=== PATIENT | female | born 1955 | race African-American/Black ===

== ENCOUNTER 2017-02-06 22:54 | Inpatient (IN) | payer OTHER ==
[~2017-02-06] VITALS: Ht 154.9 cm; Wt 77.7 kg
[~2017-02-06 22:54] MED LIST: ALBU6.7H IH; AMLO10TA80 PO; DEXL60CA3 PO; FERR-43 PO; FOLI-43 PO; FURO-151 PO; LACT10SO PO; LOSA100T14 PO; MOME13HF2 IH; MULT-1146 PO; P20 PO; PROT40 PO; SPIR50TA26 PO; TIOT18CA3 INH; [UNRECOGNIZED DRUG - OTHER]; propranolol; thiamine
[2017-02-06] MEDS ORDERED: ALBUTEROL (0.083%) 2.5MG/3ML NEB HHN STA (23:33)
[2017-02-06] MEDS ORDERED: METHYLPREDNISOLONE SOD SUCC 125 MG/2 ML VIAL IV STA (23:33)
[2017-02-06] MEDS ORDERED: IPRATROPIUM BROMIDE (0.02%) 0.5MG/2.5ML NEB HHN STA (23:33)
[2017-02-06] MEDS ORDERED: FUROSEMIDE 40MG/4ML VIAL IVP ONE (23:45)
[2017-02-06 23:58] LABS: DIFFERENTIAL COMMENT 1; HEMATOCRIT. 24.6 % (36.0-48.0); HEMOGLOBIN. 7.5 g/dL (12.0-16.0); MEAN CORPUSCULAR HEMOGLOBIN 24.3 pg (28.0-32.0); MEAN CORPUSCULAR HGB CONC 30.4 g/dL (31.0-37.0); MEAN CORPUSCULAR VOLUME 80.2 fL (81.0-99.0); MEAN PLATELET VOLUME 6.8 fl (7.4-10.4); PLATELET 554 x1000/uL (130-400); RED BLOOD CELL COUNT 3.07 mill/uL (4.2-5.4); RED CELL DISTRIBUTION WIDTH 23.3 % (11.6-14.6); WHITE BLOOD COUNT 15.5 x1000/uL (4.5-11.0)
[2017-02-07] VITALS: BP 96/51
[2017-02-07 00:03] LABS: CHLORIDE 97 mEq/L (98-107); INDEX HEMOLYSI 1 (1-3); INDEX ICTERIC 1 (1-4); INDEX LIPEMIC 1 (1-3)
[2017-02-07 00:06] LABS: INR 1.2; PARTIAL THROMBOPLASTIN TIME 28.2 sec (24.0-34.0); PROTHROMBIN TIME 12.8 sec
[2017-02-07 00:12] LABS: ALANINE AMINOTRANSFERASE 25 IU/L (13-61); ALBUMIN 2.4 g/dL (3.4-5.0); ANION GAP 15; CALCIUM 8.2 mg/dL (8.5-10.1); CARBON DIOXIDE 26 mEq/L (21-32); UREA NITROGEN BLOOD 54 mg/dL (7-21); eGFR 24 mL/min (>60)
[2017-02-07] MEDS ORDERED: MORPHINE SULFATE 4 MG/ML CPJ (NOT FOR IM USE) IV ONE (00:30)
[2017-02-07] MEDS ORDERED: ONDANSETRON HCL 4MG/2ML VIAL IV ONE (00:30)
[2017-02-07] MEDS ORDERED: ALBUTEROL (0.5%) 2.5MG/0.5ML NEB HHN ONE (01:33)
[2017-02-07 04:32] LABS: ATYPICAL LYMPHOCYTES 1; PLATELET ESTIMATE INCREASED
[2017-02-07 04:33] LABS: HYPOCHROMASIA 1+
[2017-02-07] MEDS ORDERED: HYDROMORPHONE HCL 2MG TABLET PO PRN (09:30)
[2017-02-07] MEDS ORDERED: CLONIDINE 0.2MG TABLET PO PRN (09:30)
[2017-02-07] MEDS ORDERED: ALBUTEROL 6.7GM HFA INHALER INH PRN (09:30)
[2017-02-07] MEDS ORDERED: IPRATROPIUM BROMIDE (0.02%) 0.5MG/2.5ML NEB HHN PRN (09:30)
[2017-02-07] MEDS ORDERED: ZOLPIDEM TARTRATE 5MG TABLET PO PRN (09:30)
[2017-02-07] MEDS ORDERED: SPIRONOLACTONE 50MG TABLET PO SCH (09:40)
[2017-02-07] MEDS ORDERED: FUROSEMIDE 40MG TABLET PO SCH ×2 (09:40)
[2017-02-07] MEDS ORDERED: PREDNISONE 20MG TABLET PO SCH (10:00)
[2017-02-07] MEDS ORDERED: ALBUTEROL (0.083%) 2.5MG/3ML NEB HHN PRN (10:00)
[2017-02-07] MEDS ORDERED: PANTOPRAZOLE 40MG DR TABLET PO SCH (10:00)
[2017-02-07] MEDS: FOLIC ACID 1MG TABLET PO SCH (10:16)
[2017-02-07] MEDS: FERROUS SULFATE 325MG TABLET PO SCH (10:17)
[2017-02-07] MEDS: HYDROCODONE/ACETAMINOPHEN 5/325MG TABLET PO PRN ×2 (10:23→21:35)
[2017-02-07] MEDS: AMLODIPINE 10MG TABLET PO SCH (10:24)
[2017-02-07] MEDS: ENOXAPARIN 30MG/0.3ML SYR SUBCUT SCH (10:25)
[2017-02-07] MEDS: LOSARTAN POTASSIUM 100 MG TABLET PO SCH (10:25)
[2017-02-07] MEDS ORDERED: LACTULOSE 20G/30ML UDC PO PRN (10:45)
[2017-02-07 12:00] VITALS: BP 82/50
[2017-02-07] MEDS: LACTULOSE 20G/30ML UDC PO SCH (12:10)
[2017-02-07 12:50] LABS: AMMONIA 38 uMol/L (<32)
[2017-02-07 13:14] VITALS: BP 105/61
[2017-02-07 13:41] LABS: BG BASE EXCESS -1.1 mmol/L (-2.0-2.0); BG CARBOXYHEMOGLOBIN 0.6 % (0.5-1.5); BG DEOXYHEMOGLOBIN 5.6 % (0.0-5.0); BG FRACTION INSPIRED OXYGEN 32; BG HCO3 ACT 23.3 mmol/L (22.0-26.0); BG METHEMOGLOBIN 0.7 % (0.0-1.5); BG OXYGEN SATURATION 94.3 % (92.0-98.5); BG OXYHEMOGLOBIN 93.1 % (94.0-97.0); BG PCO2 37.2 mmHg (35.0-45.0); BG PH 7.415 (7.350-7.450); BG SAMPLE SITE RIGHT BRACHIAL; BG VENT MODE NASAL CANNULA
[2017-02-07] MEDS: CEFEPIME 1,000 MG in DEXTROSE 5% WATER 50 ML IV SCH (13:43)
[2017-02-07] MEDS: IPRATROPIUM/ALBUTEROL 0.5-3(2.5)MG/3ML NEB HHN SCH ×2 (14:22→20:51)
[2017-02-07] MEDS: BUDESONIDE 0.5MG/2ML NEB HHN SCH ×2 (14:28→20:51)
[2017-02-07 16:00] VITALS: BP 75/49
[2017-02-07] MEDS: PREDNISONE 20MG TABLET PO SCH (16:40)
[2017-02-07 20:00] VITALS: BP 102/63
[2017-02-07 23:49] LABS: CLARITY URINE CLEAR (CLEAR); COLOR URINE YELLOW (YELLOW); GLUCOSE URINE NEGATIVE (NEGATIVE); KETONES URINE NEGATIVE (NEGATIVE); LEUKOCYTE ESTERASE URINE NEGATIVE (NEGATIVE); NITRITE URINE NEGATIVE (NEGATIVE); OCCULT BLOOD URINE NEGATIVE (NEGATIVE); PROTEIN URINE NEGATIVE (NEGATIVE); SPECIFIC GRAVITY URINE 1.017 (1.005-1.030); UROBILINOGEN URINE 0.2 E.U./dL (0.2-1.0)
[2017-02-08] VITALS (12 sets, daily range): BP systolic 87–123; BP diastolic 50–78
[2017-02-08] MEDS: CEFEPIME 1,000 MG in DEXTROSE 5% WATER 50 ML IV SCH ×2 (00:45→14:23)
[2017-02-08 00:48] LABS: *AMPHETAMINES SCREEN URINE NEGATIVE (NEGATIVE); *BARBITURATES SCREEN URINE NEGATIVE (NEGATIVE); *BENZODIAZEPINES SCREEN URINE NEGATIVE (NEGATIVE); *COCAINE SCREEN URINE NEGATIVE (NEGATIVE); CANNABINOID URINE SCREEN NEGATIVE (NEGATIVE); ECSTASY MDMA SCREEN URINE NEGATIVE (NEGATIVE); METHADONE URINE SCREEN NEGATIVE (NEGATIVE); OPIATES URINE SCREEN PRESUMTIVE POSITIVE (NEGATIVE); PHENCYCLIDINE URINE SCREEN NEGATIVE (NEGATIVE)
[2017-02-08] MEDS: IPRATROPIUM/ALBUTEROL 0.5-3(2.5)MG/3ML NEB HHN SCH ×4 (01:34→20:47)
[2017-02-08] MEDS: ACETAMINOPHEN 325MG TABLET PO PRN (05:44)
[2017-02-08 06:29] LABS: MEAN CORPUSCULAR HEMOGLOBIN 25.1 pg (28.0-32.0); MEAN CORPUSCULAR HGB CONC 31.4 g/dL (31.0-37.0); MEAN PLATELET VOLUME 6.9 fl (7.4-10.4); PLATELET 443 x1000/uL (130-400); RED BLOOD CELL COUNT 2.63 mill/uL (4.2-5.4); RED CELL DISTRIBUTION WIDTH 23.4 % (11.6-14.6); WHITE BLOOD COUNT 15.5 x1000/uL (4.5-11.0)
[2017-02-08 07:33] LABS: CALCIUM 7.9 mg/dL (8.5-10.1)
[2017-02-08 07:37] LABS: DIFFERENTIAL COMMENT 1
[2017-02-08 07:58] LABS: HEMOGLOBIN. 6.6 g/dL (12.0-16.0)
[2017-02-08] MEDS: BUDESONIDE 0.5MG/2ML NEB HHN SCH ×2 (08:28→20:47)
[2017-02-08] MEDS: FUROSEMIDE 20MG/2ML VIAL IVP SCH (09:00)
[2017-02-08] MEDS: LOSARTAN POTASSIUM 100 MG TABLET PO SCH (09:00)
[2017-02-08] MEDS: AMLODIPINE 10MG TABLET PO SCH (09:00)
[2017-02-08] MEDS: FOLIC ACID 1MG TABLET PO SCH (09:04)
[2017-02-08] MEDS: LACTULOSE 20G/30ML UDC PO SCH (09:04)
[2017-02-08] MEDS: PREDNISONE 20MG TABLET PO SCH ×2 (09:04→17:44)
[2017-02-08] MEDS: FERROUS SULFATE 325MG TABLET PO SCH (09:05)
[2017-02-08] MEDS: ENOXAPARIN 30MG/0.3ML SYR SUBCUT SCH (10:00)
[2017-02-08] MEDS: PANTOPRAZOLE SODIUM 40 MG/VIAL IV SCH ×2 (11:04→17:44)
[2017-02-08 11:24] LABS: ANISOCYTOSIS 3+; PLATELET ESTIMATE INCREASED
[2017-02-08 12:24] LABS: HEMATOCRIT 26.3 % (36.0-48.0); HEMOGLOBIN 7.7 g/dL (12.0-16.0)
[2017-02-08 14:19] LABS: INDEX HEMOLYSI 1 (1-3); INDEX ICTERIC 1 (1-4); INDEX LIPEMIC 1 (1-3); IRON 11 ug/dL (50-175); TOTAL IRON BINDING CAPACITY 301 ug/dL (250-450)
[2017-02-08 17:47] LABS: CREATINE KINASE MB FRACTION 1.5 ng/mL (0.5-3.6); TROPONIN I 0.02 ng/mL (0.00-0.04)
[2017-02-08 17:57] LABS: T4 FREE 0.98 ng/dL (0.76-1.46)
[2017-02-08 18:02] LABS: THYROID STIMULATING HORMONE 0.4 uIU/mL (0.36-3.74)
[2017-02-08] MEDS: HYDROCODONE/ACETAMINOPHEN 5/325MG TABLET PO PRN (18:44)
[2017-02-08 20:58] LABS: HEMATOCRIT 28.9 % (36.0-48.0); HEMOGLOBIN 8.9 g/dL (12.0-16.0)
[2017-02-08] MEDS ORDERED: SODIUM POLYSTYRENE SULFONATE 15 G/60 ML BOT PO NR (21:30)
[2017-02-08 23:41] LABS: CREATINE KINASE MB FRACTION 1.5 ng/mL (0.5-3.6); TROPONIN I 0.04 ng/mL (0.00-0.04)
[2017-02-09] VITALS (10 sets, daily range): BP systolic 104–134; BP diastolic 61–104
[2017-02-09] MEDS: CEFEPIME 1,000 MG in DEXTROSE 5% WATER 50 ML IV SCH ×2 (00:21→13:06)
[2017-02-09] MEDS: HYDROCODONE/ACETAMINOPHEN 5/325MG TABLET PO PRN ×2 (00:23→09:29)
[2017-02-09] MEDS: IPRATROPIUM/ALBUTEROL 0.5-3(2.5)MG/3ML NEB HHN SCH ×4 (00:49→20:09)
[2017-02-09 01:45] LABS: HEMATOCRIT 26.9 % (36.0-48.0); HEMOGLOBIN 8.4 g/dL (12.0-16.0)
[2017-02-09] MEDS: MORPHINE SULFATE 2 MG/ML CPJ (NOT FOR IM USE) IV PRN ×3 (04:05→21:30)
[2017-02-09] MEDS: PANTOPRAZOLE SODIUM 40 MG/VIAL IV SCH ×2 (08:12→17:33)
[2017-02-09] MEDS: BUDESONIDE 0.5MG/2ML NEB HHN SCH ×2 (08:14→20:09)
[2017-02-09] MEDS: ENOXAPARIN 30MG/0.3ML SYR SUBCUT SCH (08:39)
[2017-02-09] MEDS: FUROSEMIDE 20MG/2ML VIAL IVP SCH (08:55)
[2017-02-09] MEDS: FERROUS SULFATE 325MG TABLET PO SCH (08:55)
[2017-02-09] MEDS: PREDNISONE 20MG TABLET PO SCH ×2 (08:55→17:34)
[2017-02-09] MEDS: FOLIC ACID 1MG TABLET PO SCH (08:55)
[2017-02-09] MEDS: LOSARTAN POTASSIUM 100 MG TABLET PO SCH (08:56)
[2017-02-09] MEDS: LACTULOSE 20G/30ML UDC PO SCH (09:00)
[2017-02-09] MEDS: AMLODIPINE 10MG TABLET PO SCH (09:00)
[2017-02-09 09:49] LABS: HEMATOCRIT. 32.2 % (36.0-48.0); HEMOGLOBIN. 10.2 g/dL (12.0-16.0); MEAN CORPUSCULAR HEMOGLOBIN 25.7 pg (28.0-32.0); MEAN CORPUSCULAR HGB CONC 31.7 g/dL (31.0-37.0); MEAN CORPUSCULAR VOLUME 81.1 fL (81.0-99.0); MEAN PLATELET VOLUME 6.8 fl (7.4-10.4); PLATELET 500 x1000/uL (130-400); RED BLOOD CELL COUNT 3.97 mill/uL (4.2-5.4); RED CELL DISTRIBUTION WIDTH 21.7 % (11.6-14.6)
[2017-02-09 09:53] LABS: DIFFERENTIAL COMMENT 1
[2017-02-09 10:19] LABS: CALCIUM 8.1 mg/dL (8.5-10.1); TROPONIN I 0.03 ng/mL (0.00-0.04)
[2017-02-09 12:27] LABS: PROTEIN BODY FLUID 3.1 gm/dL
[2017-02-09 13:36] LABS: BODY FLUID MONOCYTES 48 %; BODY FLUID WBC 375 /cu mm (0-200)
[2017-02-09] MEDS ORDERED: VANCOMYCIN 1500MG in DEXTROSE 5% WATER 250ML IV NR (16:00)
[2017-02-09 16:26] LABS: ANISOCYTOSIS 1+; NUCLEATED RED BLOOD CELLS 3 /100 WBC; PLATELET ESTIMATE INCREASED
[2017-02-10] VITALS: BP 142/81
[2017-02-10] MEDS: IPRATROPIUM/ALBUTEROL 0.5-3(2.5)MG/3ML NEB HHN SCH ×4 (02:54→20:26)
[2017-02-10] MEDS: MORPHINE SULFATE 2 MG/ML CPJ (NOT FOR IM USE) IV PRN ×4 (03:09→18:44)
[2017-02-10 04:00] VITALS: BP 122/78
[2017-02-10 05:48] LABS: ANION GAP 15; CALCIUM 8.2 mg/dL (8.5-10.1); CARBON DIOXIDE 27 mEq/L (21-32); CHLORIDE 99 mEq/L (98-107); INDEX HEMOLYSI 1 (1-3); INDEX ICTERIC 1 (1-4); INDEX LIPEMIC 1 (1-3); UREA NITROGEN BLOOD 65 mg/dL (7-21); eGFR > 60 mL/min (>60)
[2017-02-10 05:53] LABS: HEMATOCRIT. 34.2 % (36.0-48.0); HEMOGLOBIN. 10.6 g/dL (12.0-16.0); MEAN CORPUSCULAR HEMOGLOBIN 25.8 pg (28.0-32.0); MEAN CORPUSCULAR HGB CONC 31.1 g/dL (31.0-37.0); MEAN CORPUSCULAR VOLUME 82.8 fL (81.0-99.0); MEAN PLATELET VOLUME 6.7 fl (7.4-10.4); PLATELET 384 x1000/uL (130-400); RED BLOOD CELL COUNT 4.13 mill/uL (4.2-5.4); RED CELL DISTRIBUTION WIDTH 21.5 % (11.6-14.6); WHITE BLOOD COUNT 16.9 x1000/uL (4.5-11.0)
[2017-02-10 07:14] LABS: DIFFERENTIAL COMMENT 1
[2017-02-10 08:00] VITALS: BP 118/76
[2017-02-10 08:27] LABS: NUCLEATED RED BLOOD CELLS 1 /100 WBC
[2017-02-10 08:28] LABS: ANISOCYTOSIS 1+; PLATELET ESTIMATE NORMAL
[2017-02-10] MEDS: LOSARTAN POTASSIUM 100 MG TABLET PO SCH (08:56)
[2017-02-10] MEDS: FERROUS SULFATE 325MG TABLET PO SCH (08:56)
[2017-02-10] MEDS: LACTULOSE 20G/30ML UDC PO SCH (08:57)
[2017-02-10] MEDS: AMLODIPINE 10MG TABLET PO SCH (08:57)
[2017-02-10] MEDS: PANTOPRAZOLE SODIUM 40 MG/VIAL IV SCH (08:57)
[2017-02-10] MEDS: BUDESONIDE 0.5MG/2ML NEB HHN SCH ×2 (09:00→20:26)
[2017-02-10] MEDS: FUROSEMIDE 20MG/2ML VIAL IVP SCH (09:14)
[2017-02-10] MEDS: FOLIC ACID 1MG TABLET PO SCH (09:15)
[2017-02-10] MEDS ORDERED: VANCOMYCIN 500 MG PREMIX 100 ML IV SCH (10:00)
[2017-02-10] MEDS: ENOXAPARIN 30MG/0.3ML SYR SUBCUT SCH (10:00)
[2017-02-10 12:00] VITALS: BP 121/71
[2017-02-10] MEDS ORDERED: SODIUM BICARBONATE 4.2% 5 MEQ/10 ML DISP.SYRIN IV ONE (13:19)
[2017-02-10] MEDS ORDERED: LIDOCAINE HCL 1% 20ML VIAL (Pyxis) INJ ONE (13:19)
[2017-02-10] MEDS ORDERED: VANCOMYCIN 500 MG PREMIX 100 ML IV NR (15:30)
[2017-02-10 16:00] VITALS: BP 115/77
[2017-02-10 20:00] VITALS: BP 119/78
[2017-02-10] MEDS: OMEPRAZOLE 20MG CAPSULE EXTENDED RELEASE PO SCH (20:55)
[2017-02-11] VITALS: BP 117/71
[2017-02-11] MEDS: IPRATROPIUM/ALBUTEROL 0.5-3(2.5)MG/3ML NEB HHN SCH ×4 (00:48→21:00)
[2017-02-11] MEDS: MORPHINE SULFATE 2 MG/ML CPJ (NOT FOR IM USE) IV PRN ×4 (01:42→21:33)
[2017-02-11 04:00] VITALS: BP 127/89
[2017-02-11 06:23] LABS: CALCIUM 8.4 mg/dL (8.5-10.1)
[2017-02-11 06:56] LABS: HEMATOCRIT. 34.2 % (36.0-48.0); HEMOGLOBIN. 10.6 g/dL (12.0-16.0); MEAN CORPUSCULAR HEMOGLOBIN 25.6 pg (28.0-32.0); MEAN CORPUSCULAR HGB CONC 31.1 g/dL (31.0-37.0); MEAN CORPUSCULAR VOLUME 82.2 fL (81.0-99.0); MEAN PLATELET VOLUME 6.9 fl (7.4-10.4); PLATELET 339 x1000/uL (130-400); RED BLOOD CELL COUNT 4.15 mill/uL (4.2-5.4); RED CELL DISTRIBUTION WIDTH 22.3 % (11.6-14.6); WHITE BLOOD COUNT 15.8 x1000/uL (4.5-11.0)
[2017-02-11] MEDS: OMEPRAZOLE 20MG CAPSULE EXTENDED RELEASE PO SCH ×2 (07:00→21:33)
[2017-02-11 07:18] LABS: DIFFERENTIAL COMMENT 1
[2017-02-11] MEDS: BUDESONIDE 0.5MG/2ML NEB HHN SCH ×2 (07:18→21:00)
[2017-02-11 08:00] VITALS: BP 120/83
[2017-02-11] MEDS: LOSARTAN POTASSIUM 100 MG TABLET PO SCH (09:31)
[2017-02-11] MEDS: ENOXAPARIN 40MG/0.4ML SYR SUBCUT SCH (09:31)
[2017-02-11] MEDS: FERROUS SULFATE 325MG TABLET PO SCH (09:31)
[2017-02-11] MEDS: LACTULOSE 20G/30ML UDC PO SCH (09:32)
[2017-02-11] MEDS: FOLIC ACID 1MG TABLET PO SCH (09:32)
[2017-02-11] MEDS: AMLODIPINE 10MG TABLET PO SCH (09:32)
[2017-02-11] MEDS: VANCOMYCIN 1 G PREMIX 200 ML IV SCH (09:32)
[2017-02-11] MEDS: FUROSEMIDE 20MG/2ML VIAL IVP SCH (09:32)
[2017-02-11 09:47] LABS: ANISOCYTOSIS 1+; HYPOCHROMASIA 1+; NUCLEATED RED BLOOD CELLS 1 /100 WBC
[2017-02-11 09:48] LABS: PLATELET ESTIMATE NORMAL
[2017-02-11 12:00] VITALS: BP 122/80
[2017-02-11 16:00] VITALS: BP_SYST 110; BP_SYST 122; BP_DIAS 73; BP_DIAS 80
[2017-02-11] MEDS ORDERED: FUROSEMIDE 20MG/2ML VIAL IVP NR (17:17)
[2017-02-11 17:53] LABS: BG BASE EXCESS -0.2 mmol/L (-2.0-2.0); BG CARBOXYHEMOGLOBIN 0.7 % (0.5-1.5); BG DEOXYHEMOGLOBIN 6.2 % (0.0-5.0); BG FRACTION INSPIRED OXYGEN 21; BG HCO3 ACT 22.7 mmol/L (22.0-26.0); BG METHEMOGLOBIN 0.3 % (0.0-1.5); BG OXYGEN SATURATION 93.7 % (92.0-98.5); BG OXYHEMOGLOBIN 92.8 % (94.0-97.0); BG PCO2 31.6 mmHg (35.0-45.0); BG PH 7.475 (7.350-7.450); BG PO2 64.9 mmHg (75.0-100.0); BG SAMPLE SITE RIGHT BRACHIAL; BG TOTAL HEMOGLOBIN 11.9 g/dL (12.0-18.0); BG VENT MODE ROOM AIR
[2017-02-11 20:00] VITALS: BP 111/72
[2017-02-12] VITALS: BP 107/70
[2017-02-12] MEDS: MORPHINE SULFATE 2 MG/ML CPJ (NOT FOR IM USE) IV PRN ×2 (02:26→06:57)
[2017-02-12] MEDS: IPRATROPIUM/ALBUTEROL 0.5-3(2.5)MG/3ML NEB HHN SCH ×2 (02:32→09:43)
[2017-02-12] MEDS: VANCOMYCIN 1 G PREMIX 200 ML IV SCH (02:45)
[2017-02-12 04:00] VITALS: BP 113/75
[2017-02-12] MEDS: OMEPRAZOLE 20MG CAPSULE EXTENDED RELEASE PO SCH (06:27)
[2017-02-12 08:00] VITALS: BP 130/71
[2017-02-12 08:26] LABS: HEMATOCRIT. 35.4 % (36.0-48.0); MEAN CORPUSCULAR HEMOGLOBIN 25.5 pg (28.0-32.0); MEAN CORPUSCULAR VOLUME 82.5 fL (81.0-99.0); PLATELET 290 x1000/uL (130-400); RED CELL DISTRIBUTION WIDTH 22.3 % (11.6-14.6); WHITE BLOOD COUNT 14.2 x1000/uL (4.5-11.0)
[2017-02-12 08:32] LABS: DIFFERENTIAL COMMENT 1
[2017-02-12 08:35] LABS: ANION GAP 15; CALCIUM 7.8 mg/dL (8.5-10.1); CARBON DIOXIDE 26 mEq/L (21-32); CHLORIDE 99 mEq/L (98-107); INDEX HEMOLYSI 1 (1-3); INDEX ICTERIC 1 (1-4); INDEX LIPEMIC 1 (1-3); UREA NITROGEN BLOOD 44 mg/dL (7-21); eGFR > 60 mL/min (>60)
[2017-02-12] MEDS: AMLODIPINE 10MG TABLET PO SCH (08:37)
[2017-02-12] MEDS: FOLIC ACID 1MG TABLET PO SCH (08:37)
[2017-02-12] MEDS: LOSARTAN POTASSIUM 100 MG TABLET PO SCH (08:37)
[2017-02-12] MEDS: LACTULOSE 20G/30ML UDC PO SCH (08:37)
[2017-02-12] MEDS: ENOXAPARIN 40MG/0.4ML SYR SUBCUT SCH (08:38)
[2017-02-12] MEDS: HYDROCODONE/ACETAMINOPHEN 5/325MG TABLET PO PRN (09:09)
[2017-02-12] MEDS: BUDESONIDE 0.5MG/2ML NEB HHN SCH (09:43)
[2017-02-12 12:55] VITALS: BP_SYST 109; BP_SYST 99; BP_DIAS 68; BP_DIAS 72
[2017-02-12 13:18] VITALS: BP 109/68
[2017-02-12] MEDS: ACETAMINOPHEN 325MG TABLET PO PRN (13:31)
[2017-02-12 13:58] LABS: ANISOCYTOSIS 2+; PLATELET ESTIMATE NORMAL
[2017-02-12 13:59] LABS: TARGET CELLS 1+
[2017-02-13] MEDS ORDERED: VANCOMYCIN 1 G PREMIX 200 ML IV SCH (02:00)
== END 2017-02-12 15:34 | disposition home or self-care (01) | DRG 720 ==
LOC: ER 22:55 → 5WST 02-07 00:13
PROVIDERS: ADMIT Internal Medicine; ATTEND Internal Medicine
PROC: 05H933Z Insertion of Infusion Device into Right Brachial Vein, Percutaneous Approach (ICD-10-PCS; principal; 2017-02-08)
PROC: B54MZZA Ultrasonography of Right Upper Extremity Veins, Guidance (ICD-10-PCS; 2017-02-08)
PROC: 30233N1 Transfusion of Nonautologous Red Blood Cells into Peripheral Vein, Percutaneous Approach (ICD-10-PCS; 2017-02-08)
PROC: 0W9930Z Drainage of Right Pleural Cavity with Drainage Device, Percutaneous Approach (ICD-10-PCS; 2017-02-09)
PROC: 0W9B30Z Drainage of Left Pleural Cavity with Drainage Device, Percutaneous Approach (ICD-10-PCS; 2017-02-10)
PROC: 0W9G3ZZ Drainage of Peritoneal Cavity, Percutaneous Approach (ICD-10-PCS; 2017-02-11)
DX: A41.9 Sepsis, unspecified organism (principal); J96.00 Acute respiratory failure, unspecified whether with hypoxia or hypercapnia; N17.0 Acute kidney failure with tubular necrosis; I50.33 Acute on chronic diastolic (congestive) heart failure; K76.6 Portal hypertension; J18.9 Pneumonia, unspecified organism; E87.1 Hypo-osmolality and hyponatremia; I11.0 Hypertensive heart disease with heart failure; E46 Unspecified protein-calorie malnutrition; K70.31 Alcoholic cirrhosis of liver with ascites; J44.1 Chronic obstructive pulmonary disease with (acute) exacerbation; E78.5 Hyperlipidemia, unspecified; E87.5 Hyperkalemia; D50.9 Iron deficiency anemia, unspecified; F10.10 Alcohol abuse, uncomplicated; J45.909 Unspecified asthma, uncomplicated; Z72.0 Tobacco use; Z82.49 Family history of ischemic heart disease and other diseases of the circulatory system; Z83.3 Family history of diabetes mellitus; D63.8 Anemia in other chronic diseases classified elsewhere; K31.89 Other diseases of stomach and duodenum; B18.2 Chronic viral hepatitis C; Z68.32 Body mass index [BMI] 32.0-32.9, adult
CPT/HCPCS: 32555; 36415; 36569; 36600; 71010; 76604; 76705; 76770; 76937; 78580; 80048; 80053; 80061; 80202; 80305; 81003; 82040; 82140; 82270; 82375; 82550; 82553; 82728; 82805; 82945; 83036; 83540; 83550; 83615; 83880; 84157; 84439; 84443; 84484; 85014; 85018; 85025; 85379; 85610; 85730; 86850; 86900; 86920; 87040; 87070; 87077; 87205; 89050; 93005; 93306; 94620; 94640; 94644; 94664; 96374; 96375; 99285; C1725; C9113; J0692; J1650; J1940; J2270; J2405; J2930; J3370; J3490; J7050; J7060; J7512; J7611; J7620; J7626; P9016

== ENCOUNTER 2017-02-23 00:57 | Emergency (ER) | payer OTHER ==
[~2017-02-23] VITALS: Ht 165.1 cm; Wt 68.0 kg
[2017-02-23] MEDS ORDERED: SODIUM CHLORIDE 0.9% 1,000 ML IV ONE (01:20)
[2017-02-23] MEDS ORDERED: ONDANSETRON HCL 4MG/2ML VIAL IV STA (01:20)
[2017-02-23] MEDS ORDERED: MORPHINE SULFATE 4 MG/ML CPJ (NOT FOR IM USE) IV STA (01:20)
[2017-02-23] MEDS ORDERED: METRONIDAZOLE 500 MG PREMIX 100 ML IV ONE (01:30)
[2017-02-23] MEDS ORDERED: CEFTRIAXONE 1 G PREMIX 50 ML IV ONE (01:30)
[2017-02-23 01:55] LABS: HEMATOCRIT. 39.2 % (36.0-48.0); HEMOGLOBIN. 12.2 g/dL (12.0-16.0); MEAN CORPUSCULAR HEMOGLOBIN 25.5 pg (28.0-32.0); MEAN CORPUSCULAR VOLUME 82.2 fL (81.0-99.0); MEAN PLATELET VOLUME 7.5 fl (7.4-10.4); PLATELET 308 x1000/uL (130-400); RED BLOOD CELL COUNT 4.77 mill/uL (4.2-5.4); RED CELL DISTRIBUTION WIDTH 23.9 % (11.6-14.6); WHITE BLOOD COUNT 25.5 x1000/uL (4.5-11.0)
[2017-02-23 01:57] LABS: DIFFERENTIAL COMMENT 1
[2017-02-23 02:02] LABS: INR 1.1; PROTHROMBIN TIME 11.5 sec
[2017-02-23 02:10] LABS: ALANINE AMINOTRANSFERASE 43 IU/L (13-61); ALBUMIN 2.7 g/dL (3.4-5.0); ANION GAP 14; CALCIUM 8.5 mg/dL (8.5-10.1); CARBON DIOXIDE 29 mEq/L (21-32); CHLORIDE 96 mEq/L (98-107); ETHANOL BLOOD < 10 mg/dL; INDEX HEMOLYSI 1 (1-3); INDEX ICTERIC 1 (1-4); INDEX LIPEMIC 1 (1-3); LIPASE 191 IU/L (73-393); UREA NITROGEN BLOOD 44 mg/dL (7-21); eGFR 43 mL/min (>60)
[2017-02-23 02:11] LABS: TROPONIN I 0.04 ng/mL (0.00-0.04)
[2017-02-23 02:12] LABS: LACTIC ACID 3.5 mmol/L (0.4-2.0)
[2017-02-23 02:16] LABS: HYPOCHROMASIA 1+; NUCLEATED RED BLOOD CELLS 2 /100 WBC; PLATELET ESTIMATE NORMAL
[2017-02-23 02:18] LABS: ANISOCYTOSIS 1+
[2017-02-23] MEDS ORDERED: SODIUM CHLORIDE 0.9% 1000ML BAG (SEPSIS BOLUS) IV ONE (02:45)
[2017-02-23 03:30] LABS: CLARITY URINE CLEAR (CLEAR); COLOR URINE YELLOW (YELLOW); GLUCOSE URINE 3+ (NEGATIVE); KETONES URINE NEGATIVE (NEGATIVE); LEUKOCYTE ESTERASE URINE TRACE (NEGATIVE); NITRITE URINE NEGATIVE (NEGATIVE); OCCULT BLOOD URINE 3+ (NEGATIVE); PH URINE 5.5 (4.5-8.0); PROTEIN URINE NEGATIVE (NEGATIVE); SPECIFIC GRAVITY URINE 1.017 (1.005-1.030); UROBILINOGEN URINE 0.2 E.U./dL (0.2-1.0)
[2017-02-23] MEDS ORDERED: MORPHINE SULFATE 4 MG/ML CPJ (NOT FOR IM USE) IV ONE ×2 (03:45→09:45)
[2017-02-23 03:46] LABS: *AMPHETAMINES SCREEN URINE NEGATIVE (NEGATIVE); *BARBITURATES SCREEN URINE NEGATIVE (NEGATIVE); *BENZODIAZEPINES SCREEN URINE NEGATIVE (NEGATIVE); *COCAINE SCREEN URINE NEGATIVE (NEGATIVE); CANNABINOID URINE SCREEN NEGATIVE (NEGATIVE); ECSTASY MDMA SCREEN URINE NEGATIVE (NEGATIVE); METHADONE URINE SCREEN NEGATIVE (NEGATIVE); OPIATES URINE SCREEN PRESUMTIVE POSITIVE (NEGATIVE); PHENCYCLIDINE URINE SCREEN NEGATIVE (NEGATIVE)
[2017-02-23 04:13] LABS: SQUAMOUS EPITHELIAL CELL URINE FEW /lpf (RARE/1+)
[2017-02-23 04:14] LABS: BACTERIA URINE 1+; YEAST URINE 1+
[2017-02-23 04:15] LABS: MUCUS URINE TRACE /lpf (< = 2+); RBC URINE 0-2 /hpf (0-2); WBC URINE 0-2 /hpf (0-2)
[2017-02-23] MEDS ORDERED: INSULIN REGULAR (HUMULIN R) 300UNITS/3ML SUBCUT ONE (04:45)
[2017-02-23] MEDS ORDERED: ONDANSETRON HCL 4MG/2ML VIAL IV ONE (09:45)
[2017-02-23 12:01] VITALS: BP 120/87
== END 2017-02-23 12:17 | disposition short-term general hospital (02) ==
LOC: ER 01:01
DX: K42.0 Umbilical hernia with obstruction, without gangrene (principal); A41.9 Sepsis, unspecified organism; Z79.4 Long term (current) use of insulin; J45.909 Unspecified asthma, uncomplicated; I10 Essential (primary) hypertension
CPT/HCPCS: 36415; 71010; 74176; 80053; 80305; 81001; 83605; 83690; 84484; 85025; 85610; 86850; 86900; 86901; 87040; 93005; 96361; 96365; 96368; 96372; 96375; 96376; 99291; G0482; J0696; J1815; J2270; J2405; J3490; J7030; Z7610

== ENCOUNTER 2017-03-31 08:16 | Inpatient (IN) | payer OTHER ==
[~2017-03-31] VITALS: Ht 154.9 cm; Wt 66.9 kg
[2017-03-31] MEDS ORDERED: METHYLPREDNISOLONE SOD SUCC 125 MG/2 ML VIAL IV STA (08:29)
[2017-03-31] MEDS ORDERED: IPRATROPIUM BROMIDE (0.02%) 0.5MG/2.5ML NEB HHN STA (08:29)
[2017-03-31] MEDS ORDERED: ALBUTEROL (0.083%) 2.5MG/3ML NEB HHN STA (08:29)
[2017-03-31] MEDS ORDERED: ALBUTEROL (0.5%) 2.5MG/0.5ML NEB HHN ONE (08:49)
[2017-03-31] MEDS ORDERED: ALBUTEROL (0.083%) 2.5MG/3ML NEB ONE (08:50)
[2017-03-31] MEDS ORDERED: IPRATROPIUM BROMIDE (0.02%) 0.5MG/2.5ML NEB ONE (08:50)
[2017-03-31 09:11] LABS: HEMATOCRIT. 31.9 % (36.0-48.0); HEMOGLOBIN. 9.8 g/dL (12.0-16.0); MEAN CORPUSCULAR HEMOGLOBIN 27.4 pg (28.0-32.0); MEAN CORPUSCULAR HGB CONC 30.8 g/dL (31.0-37.0); MEAN PLATELET VOLUME 6.8 fl (7.4-10.4); PLATELET 235 x1000/uL (130-400); RED BLOOD CELL COUNT 3.58 mill/uL (4.2-5.4); RED CELL DISTRIBUTION WIDTH 21.9 % (11.6-14.6)
[2017-03-31 09:12] LABS: DIFFERENTIAL COMMENT 1
[2017-03-31 09:18] LABS: INR 1.1; PROTHROMBIN TIME 11.9 sec
[2017-03-31 09:20] LABS: ANION GAP 10; CALCIUM 8.6 mg/dL (8.5-10.1); CARBON DIOXIDE 27 mEq/L (21-32); CHLORIDE 110 mEq/L (98-107); INDEX HEMOLYSI 1 (1-3); INDEX ICTERIC 1 (1-4); INDEX LIPEMIC 1 (1-3); UREA NITROGEN BLOOD 11 mg/dL (7-21)
[2017-03-31 09:25] LABS: ANISOCYTOSIS 3+; PLATELET ESTIMATE NORMAL
[2017-03-31 09:26] LABS: ALANINE AMINOTRANSFERASE 29 IU/L (13-61); HYPOCHROMASIA 1+; eGFR > 60 mL/min (>60)
[2017-03-31 09:27] LABS: NT PRO B-TYPE NATRIURETIC PEP 1036 pg/mL (5-125); TROPONIN I 0.04 ng/mL (0.00-0.04)
[2017-03-31] MEDS ORDERED: MORPHINE SULFATE 4 MG/ML CPJ (NOT FOR IM USE) IV ONE (10:00)
[2017-03-31] MEDS ORDERED: ONDANSETRON HCL 4MG/2ML VIAL IV ONE (10:00)
[2017-03-31] MEDS ORDERED: POTASSIUM CHLORIDE 20MEQ TABLET SR PO SCH (11:30)
[2017-03-31] MEDS ORDERED: LEVOFLOXACIN 750MG PREMIX 150 ML IV SCH (11:30)
[2017-03-31 15:50] VITALS: BP 120/85
[2017-03-31 15:56] VITALS: BP 120/85
[2017-03-31] MEDS ORDERED: FURO80TA3 PO ×2 (16:41→18:25)
[2017-03-31 17:26] LABS: MAGNESIUM 2.1 mg/dL (1.8-2.4)
[2017-03-31 18:00] VITALS: BP 124/88
[2017-03-31] MEDS ORDERED: PANT40TA4 PO (18:25)
[2017-03-31] MEDS ORDERED: SPIR50TA26 PO (18:25)
[2017-03-31] MEDS ORDERED: OMEP20CA10 PO (18:25)
[2017-03-31] MEDS ORDERED: AMLO10TA80 PO (18:25)
[2017-03-31] MEDS ORDERED: IPRA12.94 INH (18:25)
[2017-03-31] MEDS ORDERED: MULT-1146 PO (18:25)
[2017-03-31] MEDS ORDERED: FOLI-43 PO (18:25)
[2017-03-31] MEDS ORDERED: LOSA100T14 PO (18:25)
[2017-03-31] MEDS ORDERED: ONDANSETRON HCL 4MG/2ML VIAL IV PRN (18:45)
[2017-03-31] MEDS: FUROSEMIDE 40MG/4ML VIAL IVP SCH (18:59)
[2017-03-31 19:59] VITALS: BP 160/104
[2017-03-31] MEDS: IPRATROPIUM/ALBUTEROL 0.5-3(2.5)MG/3ML NEB INH PRN (20:14)
[2017-03-31] MEDS: MORPHINE SULFATE 2 MG/ML CPJ (NOT FOR IM USE) IV PRN (20:20)
[2017-03-31] MEDS: PROPRANOLOL HCL 10MG TABLET PO SCH (20:21)
[2017-04-01] VITALS (17 sets, daily range): BP systolic 118–156; BP diastolic 55–104
[2017-04-01] MEDS: IPRATROPIUM/ALBUTEROL 0.5-3(2.5)MG/3ML NEB INH PRN ×3 (04:45→20:28)
[2017-04-01] MEDS: MORPHINE SULFATE 2 MG/ML CPJ (NOT FOR IM USE) IV PRN ×4 (05:15→20:44)
[2017-04-01 05:49] LABS: HEMATOCRIT. 29.9 % (36.0-48.0); HEMOGLOBIN. 9.2 g/dL (12.0-16.0); MEAN CORPUSCULAR HGB CONC 30.8 g/dL (31.0-37.0); MEAN CORPUSCULAR VOLUME 90.9 fL (81.0-99.0); MEAN PLATELET VOLUME 6.9 fl (7.4-10.4); PLATELET 149 x1000/uL (130-400); RED BLOOD CELL COUNT 3.29 mill/uL (4.2-5.4); WHITE BLOOD COUNT 15.6 x1000/uL (4.5-11.0)
[2017-04-01] MEDS: PANTOPRAZOLE 40MG DR TABLET PO SCH (05:52)
[2017-04-01 06:16] LABS: DIFFERENTIAL COMMENT 1
[2017-04-01 06:26] LABS: ANION GAP 10; CARBON DIOXIDE 28 mEq/L (21-32); CHLORIDE 110 mEq/L (98-107); INDEX HEMOLYSI 1 (1-3); INDEX ICTERIC 1 (1-4); INDEX LIPEMIC 1 (1-3); UREA NITROGEN BLOOD 18 mg/dL (7-21); eGFR > 60 mL/min (>60)
[2017-04-01] MEDS ORDERED: VANCOMYCIN 1 G PREMIX 200 ML IV SCH (08:15)
[2017-04-01 08:40] LABS: CLARITY URINE CLEAR (CLEAR); COLOR URINE YELLOW (YELLOW); GLUCOSE URINE NEGATIVE (NEGATIVE); KETONES URINE NEGATIVE (NEGATIVE); LEUKOCYTE ESTERASE URINE NEGATIVE (NEGATIVE); NITRITE URINE NEGATIVE (NEGATIVE); OCCULT BLOOD URINE NEGATIVE (NEGATIVE); PH URINE 5.5 (4.5-8.0); PROTEIN URINE NEGATIVE (NEGATIVE); SPECIFIC GRAVITY URINE 1.014 (1.005-1.030)
[2017-04-01] MEDS: FOLIC ACID 1MG TABLET PO SCH (08:57)
[2017-04-01] MEDS: FERROUS SULFATE 325MG TABLET PO SCH (08:57)
[2017-04-01] MEDS: LOSARTAN POTASSIUM 100 MG TABLET PO SCH (08:58)
[2017-04-01] MEDS: PROPRANOLOL HCL 10MG TABLET PO SCH ×2 (08:58→20:44)
[2017-04-01] MEDS: FUROSEMIDE 40MG/4ML VIAL IVP SCH ×2 (09:00→17:00)
[2017-04-01] MEDS ORDERED: AMLODIPINE 10MG TABLET PO SCH (09:00)
[2017-04-01] MEDS ORDERED: LOSARTAN POTASSIUM 100 MG TABLET PO SCH (09:00)
[2017-04-01] MEDS ORDERED: SPIRONOLACTONE 50MG TABLET PO SCH ×2 (09:00)
[2017-04-01] MEDS ORDERED: FUROSEMIDE 80MG TABLET PO SCH (09:00)
[2017-04-01] MEDS: AMLODIPINE 10MG TABLET PO SCH (09:00)
[2017-04-01] MEDS: LEVOFLOXACIN 500MG PREMIX 100 ML IV SCH (12:37)
[2017-04-01 13:16] LABS: ANISOCYTOSIS 2+; PLATELET ESTIMATE NORMAL
[2017-04-01] MEDS: DOCUSATE SODIUM 100MG CAPSULE PO SCH (17:00)
[2017-04-02] VITALS (12 sets, daily range): BP systolic 87–122; BP diastolic 52–89
[2017-04-02] MEDS: IPRATROPIUM/ALBUTEROL 0.5-3(2.5)MG/3ML NEB INH PRN ×6 (00:38→20:20)
[2017-04-02] MEDS: MORPHINE SULFATE 2 MG/ML CPJ (NOT FOR IM USE) IV PRN ×4 (03:25→21:36)
[2017-04-02] MEDS: PANTOPRAZOLE 40MG DR TABLET PO SCH (05:46)
[2017-04-02 06:47] LABS: BASOPHILS % 0.2 % (0.0-2.0); EOSINOPHILS % 0.1 % (0.0-5.0); HEMATOCRIT. 28.4 % (36.0-48.0); HEMOGLOBIN. 8.9 g/dL (12.0-16.0); LYMPHOCYTES % 9.4 % (20.0-50.0); MEAN CORPUSCULAR HEMOGLOBIN 28.1 pg (28.0-32.0); MEAN CORPUSCULAR HGB CONC 31.5 g/dL (31.0-37.0); MEAN CORPUSCULAR VOLUME 89.3 fL (81.0-99.0); MEAN PLATELET VOLUME 7.1 fl (7.4-10.4); MONOCYTES % 6.3 % (2.0-8.0); PLATELET 124 x1000/uL (130-400); RED BLOOD CELL COUNT 3.18 mill/uL (4.2-5.4); RED CELL DISTRIBUTION WIDTH 21.8 % (11.6-14.6); WHITE BLOOD COUNT 12.6 x1000/uL (4.5-11.0)
[2017-04-02 07:13] LABS: CHLORIDE 106 mEq/L (98-107); INDEX HEMOLYSI 1 (1-3); INDEX ICTERIC 1 (1-4); INDEX LIPEMIC 1 (1-3); UREA NITROGEN BLOOD 20 mg/dL (7-21)
[2017-04-02 07:20] LABS: ANION GAP 11; CALCIUM 7.6 mg/dL (8.5-10.1); CARBON DIOXIDE 29 mEq/L (21-32); MAGNESIUM 1.4 mg/dL (1.8-2.4); eGFR > 60 mL/min (>60)
[2017-04-02] MEDS: FUROSEMIDE 40MG/4ML VIAL IVP SCH ×2 (09:01→17:58)
[2017-04-02] MEDS: PROPRANOLOL HCL 10MG TABLET PO SCH ×2 (09:01→21:35)
[2017-04-02] MEDS: DOCUSATE SODIUM 100MG CAPSULE PO SCH ×2 (09:02→17:59)
[2017-04-02] MEDS: AMLODIPINE 10MG TABLET PO SCH (09:02)
[2017-04-02] MEDS: LOSARTAN POTASSIUM 100 MG TABLET PO SCH (09:02)
[2017-04-02] MEDS: FERROUS SULFATE 325MG TABLET PO SCH (09:02)
[2017-04-02] MEDS: FOLIC ACID 1MG TABLET PO SCH (09:02)
[2017-04-02] MEDS: LEVOFLOXACIN 500MG PREMIX 100 ML IV SCH (11:34)
[2017-04-02] MEDS ORDERED: LACTULOSE 20G/30ML UDC PO NR (13:30)
[2017-04-02] MEDS ORDERED: VANCOMYCIN 1 G PREMIX 200 ML IV SCH (14:00)
[2017-04-03] VITALS (11 sets, daily range): BP systolic 3–134; BP diastolic 54–84
[2017-04-03] MEDS: IPRATROPIUM/ALBUTEROL 0.5-3(2.5)MG/3ML NEB INH PRN ×4 (00:36→12:24)
[2017-04-03] MEDS: MORPHINE SULFATE 2 MG/ML CPJ (NOT FOR IM USE) IV PRN ×4 (03:04→22:54)
[2017-04-03] MEDS: FAMOTIDINE 20MG TABLET PO SCH ×2 (06:18→15:48)
[2017-04-03 06:50] LABS: BASOPHILS % 0.5 % (0.0-2.0); DIFFERENTIAL COMMENT 0; EOSINOPHILS % 0.7 % (0.0-5.0); HEMATOCRIT. 30.2 % (36.0-48.0); HEMOGLOBIN. 9.5 g/dL (12.0-16.0); LYMPHOCYTES % 10.9 % (20.0-50.0); MEAN CORPUSCULAR HEMOGLOBIN 28.1 pg (28.0-32.0); MEAN CORPUSCULAR HGB CONC 31.3 g/dL (31.0-37.0); MEAN CORPUSCULAR VOLUME 89.6 fL (81.0-99.0); MEAN PLATELET VOLUME 7.1 fl (7.4-10.4); MONOCYTES % 7.2 % (2.0-8.0); NEUTROPHILS % 80.7 % (40.0-76.0); PLATELET 122 x1000/uL (130-400); RED BLOOD CELL COUNT 3.37 mill/uL (4.2-5.4); RED CELL DISTRIBUTION WIDTH 20.7 % (11.6-14.6); WHITE BLOOD COUNT 14.4 x1000/uL (4.5-11.0)
[2017-04-03 07:53] LABS: ANION GAP 10; CALCIUM 7.2 mg/dL (8.5-10.1); CARBON DIOXIDE 30 mEq/L (21-32); CHLORIDE 104 mEq/L (98-107); INDEX HEMOLYSI 1 (1-3); INDEX ICTERIC 1 (1-4); INDEX LIPEMIC 1 (1-3); UREA NITROGEN BLOOD 23 mg/dL (7-21)
[2017-04-03 08:01] LABS: eGFR > 60 mL/min (>60)
[2017-04-03] MEDS: FERROUS SULFATE 325MG TABLET PO SCH (08:10)
[2017-04-03] MEDS: FUROSEMIDE 40MG/4ML VIAL IVP SCH ×2 (08:10→16:54)
[2017-04-03] MEDS: PROPRANOLOL HCL 10MG TABLET PO SCH ×2 (08:11→20:58)
[2017-04-03] MEDS: AMLODIPINE 10MG TABLET PO SCH (08:11)
[2017-04-03] MEDS: DOCUSATE SODIUM 100MG CAPSULE PO SCH ×2 (08:11→16:54)
[2017-04-03] MEDS: FOLIC ACID 1MG TABLET PO SCH (08:11)
[2017-04-03] MEDS: LOSARTAN POTASSIUM 100 MG TABLET PO SCH (08:11)
[2017-04-03] MEDS: VANCOMYCIN 750 MG PREMIX 150 ML IV SCH ×2 (12:34→22:52)
[2017-04-03 12:53] LABS: BG BASE EXCESS 0.5 mmol/L (-2.0-2.0); BG CARBOXYHEMOGLOBIN 0.4 % (0.5-1.5); BG DEOXYHEMOGLOBIN 5.9 % (0.0-5.0); BG FRACTION INSPIRED OXYGEN 28; BG HCO3 ACT 25.3 mmol/L (22.0-26.0); BG METHEMOGLOBIN 0.1 % (0.0-1.5); BG OXYGEN SATURATION 94.1 % (92.0-98.5); BG OXYHEMOGLOBIN 93.6 % (94.0-97.0); BG PCO2 41.3 mmHg (35.0-45.0); BG PH 7.405 (7.350-7.450); BG PO2 69.5 mmHg (75.0-100.0); BG SAMPLE SITE RIGHT RADIAL; BG TOTAL HEMOGLOBIN 10.2 g/dL (12.0-18.0); BG VENT MODE NASAL CANNULA
[2017-04-03] MEDS: LEVOFLOXACIN 500MG PREMIX 100 ML IV SCH (13:51)
[2017-04-03] MEDS: LACTULOSE 20G/30ML UDC PO PRN (14:57)
[2017-04-03] MEDS: IPRATROPIUM/ALBUTEROL 0.5-3(2.5)MG/3ML NEB HHN SCH ×3 (16:19→23:46)
[2017-04-04] VITALS (10 sets, daily range): BP systolic 92–128; BP diastolic 47–73
[2017-04-04] MEDS: IPRATROPIUM/ALBUTEROL 0.5-3(2.5)MG/3ML NEB HHN SCH ×6 (03:48→23:47)
[2017-04-04] MEDS: LACTULOSE 20G/30ML UDC PO PRN ×2 (04:39→12:18)
[2017-04-04] MEDS: MORPHINE SULFATE 2 MG/ML CPJ (NOT FOR IM USE) IV PRN ×4 (04:40→22:16)
[2017-04-04] MEDS: FAMOTIDINE 20MG TABLET PO SCH ×2 (06:50→18:15)
[2017-04-04 07:17] LABS: BASOPHILS % 0.5 % (0.0-2.0); DIFFERENTIAL COMMENT 0; EOSINOPHILS % 0.9 % (0.0-5.0); HEMATOCRIT. 30.1 % (36.0-48.0); HEMOGLOBIN. 9.6 g/dL (12.0-16.0); LYMPHOCYTES % 11.2 % (20.0-50.0); MEAN CORPUSCULAR HEMOGLOBIN 28.3 pg (28.0-32.0); MEAN CORPUSCULAR HGB CONC 31.8 g/dL (31.0-37.0); MEAN CORPUSCULAR VOLUME 88.9 fL (81.0-99.0); MEAN PLATELET VOLUME 7.7 fl (7.4-10.4); MONOCYTES % 7.2 % (2.0-8.0); NEUTROPHILS % 80.2 % (40.0-76.0); PLATELET 122 x1000/uL (130-400); RED BLOOD CELL COUNT 3.39 mill/uL (4.2-5.4); RED CELL DISTRIBUTION WIDTH 20.2 % (11.6-14.6); WHITE BLOOD COUNT 15.2 x1000/uL (4.5-11.0)
[2017-04-04 07:57] LABS: CALCIUM 7.1 mg/dL (8.5-10.1)
[2017-04-04] MEDS: DOCUSATE SODIUM 100MG CAPSULE PO SCH ×2 (08:16→18:16)
[2017-04-04] MEDS: FERROUS SULFATE 325MG TABLET PO SCH (08:16)
[2017-04-04] MEDS: FOLIC ACID 1MG TABLET PO SCH (08:16)
[2017-04-04] MEDS: PROPRANOLOL HCL 10MG TABLET PO SCH ×3 (08:17→22:14)
[2017-04-04] MEDS: LOSARTAN POTASSIUM 100 MG TABLET PO SCH (08:17)
[2017-04-04] MEDS: FUROSEMIDE 40MG/4ML VIAL IVP SCH ×2 (08:18→18:16)
[2017-04-04] MEDS: VANCOMYCIN 750 MG PREMIX 150 ML IV SCH (08:28)
[2017-04-04] MEDS: AMLODIPINE 10MG TABLET PO SCH (08:28)
[2017-04-04] MEDS: LEVOFLOXACIN 500MG PREMIX 100 ML IV SCH (11:38)
[2017-04-04] MEDS ORDERED: BISACODYL 5MG TABLET PO PRN (13:30)
[2017-04-04] MEDS ORDERED: NA PHOS,M-B/NA PHOS,DI-BA ENEMA 118ML PR NR (13:30)
[2017-04-04] MEDS ORDERED: METHYLPREDNISOLONE SOD SUCC 125 MG/2 ML VIAL IV SCH (13:30)
[2017-04-04] MEDS: METHYLPREDNISOLONE SOD SUCC 40 MG/ML VIAL IV SCH (22:13)
[2017-04-05] VITALS (11 sets, daily range): BP systolic 92–140; BP diastolic 50–79
[2017-04-05] MEDS: IPRATROPIUM/ALBUTEROL 0.5-3(2.5)MG/3ML NEB HHN SCH ×4 (04:24→21:12)
[2017-04-05] MEDS: FAMOTIDINE 20MG TABLET PO SCH ×2 (06:35→16:35)
[2017-04-05] MEDS: METHYLPREDNISOLONE SOD SUCC 40 MG/ML VIAL IV SCH ×3 (06:35→21:24)
[2017-04-05] MEDS: LACTULOSE 20G/30ML UDC PO PRN ×2 (06:40→21:28)
[2017-04-05] MEDS: VANCOMYCIN 750 MG PREMIX 150 ML IV SCH (07:46)
[2017-04-05] MEDS: FOLIC ACID 1MG TABLET PO SCH (08:27)
[2017-04-05] MEDS: PROPRANOLOL HCL 10MG TABLET PO SCH ×2 (08:27→21:25)
[2017-04-05] MEDS: FUROSEMIDE 40MG/4ML VIAL IVP SCH ×2 (08:27→16:35)
[2017-04-05] MEDS: LOSARTAN POTASSIUM 100 MG TABLET PO SCH (08:27)
[2017-04-05] MEDS: DOCUSATE SODIUM 100MG CAPSULE PO SCH ×2 (08:27→16:35)
[2017-04-05] MEDS: FERROUS SULFATE 325MG TABLET PO SCH (08:27)
[2017-04-05] MEDS: AMLODIPINE 10MG TABLET PO SCH (08:28)
[2017-04-05] MEDS: MORPHINE SULFATE 2 MG/ML CPJ (NOT FOR IM USE) IV PRN ×3 (10:21→21:26)
[2017-04-05] MEDS: LEVOFLOXACIN 500MG PREMIX 100 ML IV SCH (12:02)
[2017-04-05] MEDS: SILVER SULFADIAZINE 1% CREAM 50GM TOP SCH (20:25)
[2017-04-06] VITALS (9 sets, daily range): BP systolic 113–146; BP diastolic 58–91
[2017-04-06] MEDS: IPRATROPIUM/ALBUTEROL 0.5-3(2.5)MG/3ML NEB HHN SCH ×6 (00:31→20:06)
[2017-04-06] MEDS: VANCOMYCIN 750 MG PREMIX 150 ML IV SCH ×2 (00:36→18:14)
[2017-04-06] MEDS: MORPHINE SULFATE 2 MG/ML CPJ (NOT FOR IM USE) IV PRN ×5 (02:12→21:36)
[2017-04-06] MEDS: METHYLPREDNISOLONE SOD SUCC 40 MG/ML VIAL IV SCH ×3 (06:30→21:35)
[2017-04-06] MEDS: FAMOTIDINE 20MG TABLET PO SCH ×2 (06:30→16:56)
[2017-04-06] MEDS: FUROSEMIDE 40MG/4ML VIAL IVP SCH ×2 (08:54→17:05)
[2017-04-06] MEDS: LACTULOSE 20G/30ML UDC PO PRN (08:54)
[2017-04-06] MEDS: FOLIC ACID 1MG TABLET PO SCH (08:55)
[2017-04-06] MEDS: FERROUS SULFATE 325MG TABLET PO SCH (08:55)
[2017-04-06] MEDS: DOCUSATE SODIUM 100MG CAPSULE PO SCH ×2 (08:55→16:57)
[2017-04-06] MEDS: AMLODIPINE 10MG TABLET PO SCH (08:55)
[2017-04-06] MEDS: LOSARTAN POTASSIUM 100 MG TABLET PO SCH (08:55)
[2017-04-06] MEDS: SILVER SULFADIAZINE 1% CREAM 50GM TOP SCH (09:00)
[2017-04-06] MEDS: PROPRANOLOL HCL 10MG TABLET PO SCH ×2 (09:02→20:32)
[2017-04-06] MEDS: LEVOFLOXACIN 500MG PREMIX 100 ML IV SCH (12:24)
[2017-04-07] VITALS: BP 133/76
[2017-04-07] MEDS: IPRATROPIUM/ALBUTEROL 0.5-3(2.5)MG/3ML NEB HHN SCH ×5 (00:13→16:26)
[2017-04-07] MEDS: MORPHINE SULFATE 2 MG/ML CPJ (NOT FOR IM USE) IV PRN ×2 (02:28→11:34)
[2017-04-07 04:00] VITALS: BP 148/93
[2017-04-07] MEDS: METHYLPREDNISOLONE SOD SUCC 40 MG/ML VIAL IV SCH ×2 (05:59→14:33)
[2017-04-07] MEDS: FAMOTIDINE 20MG TABLET PO SCH (06:02)
[2017-04-07] MEDS: LACTULOSE 20G/30ML UDC PO PRN (06:06)
[2017-04-07 06:09] LABS: HEMATOCRIT. 33.1 % (36.0-48.0); HEMOGLOBIN. 10.5 g/dL (12.0-16.0); MEAN CORPUSCULAR HEMOGLOBIN 28.1 pg (28.0-32.0); MEAN CORPUSCULAR HGB CONC 31.7 g/dL (31.0-37.0); MEAN CORPUSCULAR VOLUME 88.7 fL (81.0-99.0); MEAN PLATELET VOLUME 7.6 fl (7.4-10.4); PLATELET 187 x1000/uL (130-400); RED BLOOD CELL COUNT 3.73 mill/uL (4.2-5.4); RED CELL DISTRIBUTION WIDTH 19.9 % (11.6-14.6); WHITE BLOOD COUNT 12.8 x1000/uL (4.5-11.0)
[2017-04-07 06:39] LABS: CALCIUM 8.5 mg/dL (8.5-10.1); DIFFERENTIAL COMMENT 1; VANCOMYCIN TROUGH 32.4 ug/mL (5.0-10.0)
[2017-04-07 08:00] VITALS: BP 141/93
[2017-04-07 09:04] LABS: PLATELET ESTIMATE NORMAL
[2017-04-07] MEDS: FUROSEMIDE 40MG/4ML VIAL IVP SCH (09:56)
[2017-04-07] MEDS: LOSARTAN POTASSIUM 100 MG TABLET PO SCH (09:56)
[2017-04-07] MEDS: FOLIC ACID 1MG TABLET PO SCH (09:57)
[2017-04-07] MEDS: DOCUSATE SODIUM 100MG CAPSULE PO SCH (09:57)
[2017-04-07] MEDS: PROPRANOLOL HCL 10MG TABLET PO SCH (09:58)
[2017-04-07] MEDS: FERROUS SULFATE 325MG TABLET PO SCH (09:58)
[2017-04-07] MEDS: AMLODIPINE 10MG TABLET PO SCH (09:59)
[2017-04-07] MEDS: LEVOFLOXACIN 500MG PREMIX 100 ML IV SCH (11:33)
[2017-04-07 14:49] VITALS: BP 141/88
[2017-04-07 16:00] VITALS: BP 104/75
== END 2017-04-07 18:10 | disposition home or self-care (01) | DRG 721 ==
LOC: ER 08:22 → 3WST 15:40 → 8WST 04-06 14:44
PROVIDERS: ADMIT Internal Medicine; ATTEND Internal Medicine
PROC: 5A09357 Assistance with Respiratory Ventilation, Less than 24 Consecutive Hours, Continuous Positive Airway Pressure (ICD-10-PCS; principal; 2017-03-31)
DX: T81.4XXA Infection following a procedure, initial encounter (principal); J96.90 Respiratory failure, unspecified, unspecified whether with hypoxia or hypercapnia; A41.9 Sepsis, unspecified organism; I11.0 Hypertensive heart disease with heart failure; K76.6 Portal hypertension; I50.32 Chronic diastolic (congestive) heart failure; J44.1 Chronic obstructive pulmonary disease with (acute) exacerbation; K70.31 Alcoholic cirrhosis of liver with ascites; D64.9 Anemia, unspecified; I83.009 Varicose veins of unspecified lower extremity with ulcer of unspecified site; E78.5 Hyperlipidemia, unspecified; E87.6 Hypokalemia; F10.10 Alcohol abuse, uncomplicated; F17.200 Nicotine dependence, unspecified, uncomplicated; K21.9 Gastro-esophageal reflux disease without esophagitis; K44.9 Diaphragmatic hernia without obstruction or gangrene; K59.00 Constipation, unspecified; L03.90 Cellulitis, unspecified; B18.2 Chronic viral hepatitis C; R73.9 Hyperglycemia, unspecified; R00.0 Tachycardia, unspecified; Z82.49 Family history of ischemic heart disease and other diseases of the circulatory system
CPT/HCPCS: 32555; 36415; 36569; 36600; 71010; 76705; 76937; 80048; 80053; 80202; 81003; 82375; 82805; 83735; 83880; 84132; 84145; 84484; 85025; 85610; 87040; 87070; 87186; 87205; 93005; 93306; 93970; 94620; 94640; 94660; 96365; 96366; 96375; 97116; 97162; 97530; 99291; A6261; C1725; J1940; J1956; J2270; J2405; J2920; J2930; J3370; J7050; J7611; J7620

== ENCOUNTER 2017-05-03 05:52 | Inpatient (IN) | payer OTHER ==
[2017-05-03] VITALS (7 sets, daily range): BP systolic 95–140; BP diastolic 59–91
[~2017-05-03] VITALS: Ht 152.4 cm; Wt 68.0 kg
[~2017-05-03 05:52] MED LIST changes: +ATROV INH; +FURO80TA3 PO; +OMEP20CA10 PO; +PANT40TA4 PO
[2017-05-03] MEDS ORDERED: IPRATROPIUM BROMIDE (0.02%) 0.5MG/2.5ML NEB HHN STA (06:11)
[2017-05-03] MEDS ORDERED: ALBUTEROL (0.083%) 2.5MG/3ML NEB HHN STA (06:11)
[2017-05-03] MEDS ORDERED: METHYLPREDNISOLONE SOD SUCC 125 MG/2 ML VIAL IV STA (06:11)
[2017-05-03] MEDS ORDERED: FUROSEMIDE 40MG/4ML VIAL IV STA (06:11)
[2017-05-03] MEDS ORDERED: NITROGLYCERIN OINT 1GM/INCH UDPKT TD STA (06:11)
[2017-05-03] MEDS ORDERED: ONDANSETRON HCL 4MG/2ML VIAL IV ONE (06:15)
[2017-05-03] MEDS ORDERED: MAGNESIUM 2 G PREMIX 50 ML IV ONE (06:15)
[2017-05-03] MEDS ORDERED: MORPHINE SULFATE 4 MG/ML CPJ (NOT FOR IM USE) IV ONE (06:15)
[2017-05-03 07:09] LABS: HEMATOCRIT. 28.9 % (36.0-48.0); HEMOGLOBIN. 9.1 g/dL (12.0-16.0); MEAN CORPUSCULAR HEMOGLOBIN 27.6 pg (28.0-32.0); MEAN CORPUSCULAR VOLUME 87.7 fL (81.0-99.0); MEAN PLATELET VOLUME 8.1 fl (7.4-10.4); PLATELET 249 x1000/uL (130-400); RED BLOOD CELL COUNT 3.29 mill/uL (4.2-5.4); RED CELL DISTRIBUTION WIDTH 17.3 % (11.6-14.6)
[2017-05-03 07:18] LABS: CARBON DIOXIDE 20 mEq/L (21-32); CHLORIDE 91 mEq/L (98-107)
[2017-05-03 07:19] LABS: INR 1.3; PARTIAL THROMBOPLASTIN TIME 25.2 sec (24.0-34.0); PROTHROMBIN TIME 13.7 sec
[2017-05-03 07:26] LABS: TROPONIN I 0.06 ng/mL (0.00-0.04)
[2017-05-03 07:48] LABS: NUCLEATED RED BLOOD CELLS 2 /100 WBC
[2017-05-03 07:50] LABS: PLATELET ESTIMATE NORMAL
[2017-05-03] MEDS ORDERED: VANCOMYCIN 1 G PREMIX 200 ML IV SCH (08:00)
[2017-05-03] MEDS ORDERED: PIPERACILLIN/TAZ 3.375G PREMIX 50 ML IV ONE (08:00)
[2017-05-03] MEDS ORDERED: HYDROCODONE/ACETAMINOPHEN 5/325MG TABLET ONE (08:24)
[2017-05-03] MEDS ORDERED: HYDROCODONE/ACETAMINOPHEN 5/325MG TABLET PO ONE (08:30)
[2017-05-03] MEDS ORDERED: DOCUSATE SODIUM 100MG CAPSULE PO PRN (13:30)
[2017-05-03] MEDS ORDERED: DEXTROSE 50% WATER 50ML SYRINGE IV PRN (13:30)
[2017-05-03] MEDS ORDERED: CLONIDINE 0.1MG TABLET PO PRN (13:30)
[2017-05-03] MEDS ORDERED: ONDANSETRON HCL 4MG/2ML VIAL IV PRN (13:30)
[2017-05-03] MEDS ORDERED: MAGNESIUM/ALUMINUM HYDROXIDE/SIMETHICONE 30ML UDC PO PRN (13:30)
[2017-05-03] MEDS ORDERED: LOSARTAN POTASSIUM 100 MG TABLET PO SCH (14:00)
[2017-05-03] MEDS ORDERED: ALBUMIN HUMAN 25GM/100ML (25%) IV NR (16:00)
[2017-05-03] MEDS: FOLIC ACID 1MG TABLET PO SCH (16:13)
[2017-05-03] MEDS: FERROUS SULFATE 325MG TABLET PO SCH (16:13)
[2017-05-03] MEDS: AMLODIPINE 10MG TABLET PO SCH (16:14)
[2017-05-03] MEDS: PIPERACILLIN/TAZ 3.375G PREMIX 50 ML IV SCH (16:14)
[2017-05-03] MEDS: MORPHINE SULFATE 2 MG/ML CPJ (NOT FOR IM USE) IV PRN ×2 (16:36→23:57)
[2017-05-03] MEDS ORDERED: SPIRONOLACTONE 50MG TABLET PO SCH (17:00)
[2017-05-03] MEDS: IPRATROPIUM/ALBUTEROL 0.5-3(2.5)MG/3ML NEB INH SCH ×2 (17:09→21:00)
[2017-05-03] MEDS: BLOOD SUGAR DIAGNOSTIC STRIP TEST SCH ×2 (17:30→21:00)
[2017-05-03 17:55] LABS: AMMONIA 33 uMol/L (<32)
[2017-05-03 18:00] LABS: CREATINE KINASE MB FRACTION 2.5 ng/mL (0.5-3.6); TROPONIN I 0.03 ng/mL (0.00-0.04)
[2017-05-03] MEDS ORDERED: METHYLPREDNISOLONE SOD SUCC 40 MG/ML VIAL IV SCH (18:00)
[2017-05-03] MEDS: INSULIN LISPRO 100 UNITS/ML SUBCUT SCH ×2 (18:59→21:00)
[2017-05-03 23:42] LABS: CREATINE KINASE MB FRACTION 1.8 ng/mL (0.5-3.6); TROPONIN I < 0.02 ng/mL (0.00-0.04)
[2017-05-04] VITALS (18 sets, daily range): BP systolic 73–152; BP diastolic 36–84
[2017-05-04] MEDS: IPRATROPIUM/ALBUTEROL 0.5-3(2.5)MG/3ML NEB INH SCH ×5 (00:05→17:08)
[2017-05-04] MEDS: PIPERACILLIN/TAZ 3.375G PREMIX 50 ML IV SCH ×3 (00:07→16:00)
[2017-05-04] MEDS: MORPHINE SULFATE 2 MG/ML CPJ (NOT FOR IM USE) IV PRN ×3 (06:49→11:35)
[2017-05-04 06:51] LABS: HEMOGLOBIN. 8.1 g/dL (12.0-16.0); MEAN CORPUSCULAR HEMOGLOBIN 27.6 pg (28.0-32.0); MEAN PLATELET VOLUME 7.9 fl (7.4-10.4); PLATELET 211 x1000/uL (130-400); RED BLOOD CELL COUNT 2.94 mill/uL (4.2-5.4)
[2017-05-04 07:40] LABS: CARBON DIOXIDE 22 mEq/L (21-32); CHLORIDE 91 mEq/L (98-107); HDL CHOLESTEROL 31 mg/dL (40-59); LDL CHOLESTEROL 17 mg/dL (5-100)
[2017-05-04] MEDS: INSULIN LISPRO 100 UNITS/ML SUBCUT SCH ×4 (08:00→20:56)
[2017-05-04] MEDS: FUROSEMIDE 40MG/4ML VIAL IVP SCH (08:07)
[2017-05-04] MEDS: AMLODIPINE 10MG TABLET PO SCH (08:07)
[2017-05-04] MEDS: SPIRONOLACTONE 25MG TABLET PO SCH (08:07)
[2017-05-04] MEDS: FERROUS SULFATE 325MG TABLET PO SCH (08:08)
[2017-05-04] MEDS: FOLIC ACID 1MG TABLET PO SCH (08:08)
[2017-05-04] MEDS: BLOOD SUGAR DIAGNOSTIC STRIP TEST SCH ×4 (08:16→20:54)
[2017-05-04] MEDS ORDERED: LOSARTAN POTASSIUM 50 MG TABLET PO SCH (09:00)
[2017-05-04 09:29] LABS: BG BASE EXCESS -2.7 mmol/L (-2.0-2.0); BG CARBOXYHEMOGLOBIN 0.4 % (0.5-1.5); BG DEOXYHEMOGLOBIN 8.5 % (0.0-5.0); BG FRACTION INSPIRED OXYGEN 21; BG HCO3 ACT 20.2 mmol/L (22.0-26.0); BG METHEMOGLOBIN 0.1 % (0.0-1.5); BG OXYGEN SATURATION 91.5 % (92.0-98.5); BG PCO2 28.5 mmHg (35.0-45.0); BG PH 7.469 (7.350-7.450); BG PO2 60.6 mmHg (75.0-100.0); BG SAMPLE SITE RIGHT RADIAL; BG TOTAL HEMOGLOBIN 9.1 g/dL (12.0-18.0); BG VENT MODE ROOM AIR
[2017-05-04] MEDS: VANCOMYCIN 750 MG PREMIX 150 ML IV SCH (09:58)
[2017-05-04] MEDS ORDERED: DILTIAZEM HCL 30MG TABLET PO SCH (10:15)
[2017-05-04] MEDS: LOSARTAN POTASSIUM 25 MG TABLET PO SCH ×2 (11:30→20:39)
[2017-05-04] MEDS ORDERED: POTASSIUM CHLORIDE 20MEQ TABLET SR PO NR (11:30)
[2017-05-04] MEDS: DILTIAZEM HCL 90MG TABLET PO SCH ×2 (12:00→18:00)
[2017-05-04] MEDS ORDERED: LIDOCAINE HCL 1% 20ML VIAL (Pyxis) INJ ONE (13:44)
[2017-05-04] MEDS ORDERED: SODIUM CHLORIDE 0.9% 10ML VIAL ONE (13:44)
[2017-05-04 17:01] LABS: NUCLEATED RED BLOOD CELLS 12 /100 WBC; PLATELET ESTIMATE INCREASED
[2017-05-04] MEDS: ACETAMINOPHEN 325MG TABLET PO PRN (20:54)
[2017-05-04] MEDS: SILVER SULFADIAZINE 1% CREAM 50GM TOP SCH (21:23)
[2017-05-04 21:54] LABS: CLARITY URINE CLEAR (CLEAR); COLOR URINE DARK YELLOW (YELLOW); GLUCOSE URINE NEGATIVE (NEGATIVE); KETONES URINE NEGATIVE (NEGATIVE); LEUKOCYTE ESTERASE URINE NEGATIVE (NEGATIVE); NITRITE URINE NEGATIVE (NEGATIVE); OCCULT BLOOD URINE NEGATIVE (NEGATIVE); PROTEIN URINE NEGATIVE (NEGATIVE); SPECIFIC GRAVITY URINE 1.021 (1.005-1.030)
[2017-05-04 22:07] LABS: *AMPHETAMINES SCREEN URINE NEGATIVE (NEGATIVE); *BARBITURATES SCREEN URINE NEGATIVE (NEGATIVE); *BENZODIAZEPINES SCREEN URINE NEGATIVE (NEGATIVE); *COCAINE SCREEN URINE NEGATIVE (NEGATIVE); CANNABINOID URINE SCREEN NEGATIVE (NEGATIVE); METHADONE URINE SCREEN NEGATIVE (NEGATIVE); OPIATES URINE SCREEN PRESUMTIVE POSITIVE (NEGATIVE); PHENCYCLIDINE URINE SCREEN NEGATIVE (NEGATIVE)
[2017-05-05] VITALS (78 sets, daily range): BP systolic 62–169; BP diastolic 39–104
[2017-05-05] MEDS: PIPERACILLIN/TAZ 3.375G PREMIX 50 ML IV SCH ×2 (00:05→09:25)
[2017-05-05] MEDS: IPRATROPIUM/ALBUTEROL 0.5-3(2.5)MG/3ML NEB INH SCH ×6 (00:29→20:17)
[2017-05-05] MEDS: DIPHENHYDRAMINE 50MG/ML VIAL IV PRN (01:36)
[2017-05-05 05:50] LABS: CARBON DIOXIDE 24 mEq/L (21-32); CHLORIDE 93 mEq/L (98-107)
[2017-05-05] MEDS: DILTIAZEM HCL 90MG TABLET PO SCH ×4 (05:55→17:50)
[2017-05-05] MEDS: ACETAMINOPHEN 325MG TABLET PO PRN (07:07)
[2017-05-05] MEDS: BLOOD SUGAR DIAGNOSTIC STRIP TEST SCH ×4 (07:50→20:38)
[2017-05-05] MEDS ORDERED: DEXT 5%/0.9% NACL 1,000 ML IV SCH (08:15)
[2017-05-05] MEDS: INSULIN LISPRO 100 UNITS/ML SUBCUT SCH ×4 (08:20→20:42)
[2017-05-05] MEDS: SPIRONOLACTONE 25MG TABLET PO SCH (09:00)
[2017-05-05] MEDS: FUROSEMIDE 40MG/4ML VIAL IVP SCH ×2 (09:00→09:25)
[2017-05-05] MEDS: LOSARTAN POTASSIUM 25 MG TABLET PO SCH ×2 (09:00→20:38)
[2017-05-05 09:09] LABS: HEMATOCRIT. 21.9 % (36.0-48.0); HEMOGLOBIN. 7.1 g/dL (12.0-16.0); MEAN CORPUSCULAR HEMOGLOBIN 27.8 pg (28.0-32.0); MEAN CORPUSCULAR VOLUME 85.7 fL (81.0-99.0); MEAN PLATELET VOLUME 7.9 fl (7.4-10.4); PLATELET 122 x1000/uL (130-400); RED BLOOD CELL COUNT 2.56 mill/uL (4.2-5.4); RED CELL DISTRIBUTION WIDTH 17.2 % (11.6-14.6)
[2017-05-05 09:17] LABS: AMMONIA < 10 uMol/L (<32)
[2017-05-05] MEDS: FOLIC ACID 1MG TABLET PO SCH (09:25)
[2017-05-05] MEDS: FERROUS SULFATE 325MG TABLET PO SCH (09:29)
[2017-05-05] MEDS: SILVER SULFADIAZINE 1% CREAM 50GM TOP SCH (09:31)
[2017-05-05] MEDS ORDERED: ALBUMIN HUMAN 25GM/100ML (25%) IV NR (10:00)
[2017-05-05] MEDS ORDERED: NOREPINEPHRINE 8 MG in DEXT 5% WATER 242 ML IV PRN (10:00)
[2017-05-05] MEDS: VANCOMYCIN 750 MG PREMIX 150 ML IV SCH (10:42)
[2017-05-05 11:00] LABS: NUCLEATED RED BLOOD CELLS 19 /100 WBC
[2017-05-05 11:01] LABS: PLATELET ESTIMATE SLIGHTLY DECREASED
[2017-05-05] MEDS ORDERED: PHENYLEPHRINE 20 MG in DEXT 5% WATER 498 ML IV PRN (11:30)
[2017-05-05 12:11] LABS: TOTAL IRON BINDING CAPACITY 306 ug/dL (250-450)
[2017-05-05 12:17] LABS: BG BASE EXCESS -0.5 mmol/L (-2.0-2.0); BG CARBOXYHEMOGLOBIN 1.1 % (0.5-1.5); BG DEOXYHEMOGLOBIN 6.8 % (0.0-5.0); BG FRACTION INSPIRED OXYGEN 40; BG HCO3 ACT 23.3 mmol/L (22.0-26.0); BG METHEMOGLOBIN 0.3 % (0.0-1.5); BG OXYGEN SATURATION 93.1 % (92.0-98.5); BG OXYHEMOGLOBIN 91.8 % (94.0-97.0); BG PCO2 34.2 mmHg (35.0-45.0); BG PH 7.452 (7.350-7.450); BG PO2 67.2 mmHg (75.0-100.0); BG SAMPLE SITE RIGHT BRACHIAL; BG TOTAL HEMOGLOBIN 7.2 g/dL (12.0-18.0); BG VENT MODE NASAL CANNULA
[2017-05-05] MEDS ORDERED: LACTULOSE 20G/30ML UDC PO SCH (14:00)
[2017-05-05] MEDS: PHENYLEPHRINE 40 MG in DEXT 5% WATER 246 ML IV PRN ×2 (15:23→20:38)
[2017-05-05] MEDS: MEROPENEM 1,000 MG in SODIUM CHLORIDE 0.9% 100 ML IV SCH (15:28)
[2017-05-05] MEDS: METRONIDAZOLE 500 MG PREMIX 100 ML IV SCH (16:17)
[2017-05-05] MEDS: MORPHINE SULFATE 2 MG/ML CPJ (NOT FOR IM USE) IV PRN (16:39)
[2017-05-05] MEDS: VANCOMYCIN HCL 1000 MG/20 ML ORAL PO SCH (17:59)
[2017-05-05] MEDS ORDERED: SODIUM CHLORIDE 0.9% 1,000 ML IV NR (18:30)
[2017-05-05 20:51] LABS: HEMATOCRIT 26.6 % (36.0-48.0); HEMOGLOBIN 8.6 g/dL (12.0-16.0)
[2017-05-05 20:58] LABS: AMMONIA 60 uMol/L (<32)
[2017-05-06] VITALS (88 sets, daily range): BP systolic 56–185; BP diastolic 39–144
[2017-05-06] MEDS: IPRATROPIUM/ALBUTEROL 0.5-3(2.5)MG/3ML NEB INH SCH ×6 (00:21→20:08)
[2017-05-06] MEDS: VANCOMYCIN HCL 1000 MG/20 ML ORAL PO SCH ×5 (00:29→23:59)
[2017-05-06] MEDS: METRONIDAZOLE 500 MG PREMIX 100 ML IV SCH ×2 (02:06→16:10)
[2017-05-06] MEDS: MEROPENEM 1,000 MG in SODIUM CHLORIDE 0.9% 100 ML IV SCH ×2 (02:06→14:32)
[2017-05-06] MEDS: PHENYLEPHRINE 40 MG in DEXT 5% WATER 246 ML IV PRN ×2 (02:06→11:05)
[2017-05-06 02:15] LABS: HEMATOCRIT 24.4 % (36.0-48.0); HEMOGLOBIN 7.9 g/dL (12.0-16.0)
[2017-05-06 05:05] LABS: HEMATOCRIT. 24.7 % (36.0-48.0); HEMOGLOBIN. 8.2 g/dL (12.0-16.0); MEAN CORPUSCULAR HEMOGLOBIN 27.2 pg (28.0-32.0); MEAN CORPUSCULAR VOLUME 82.5 fL (81.0-99.0); PLATELET 81 x1000/uL (130-400); RED CELL DISTRIBUTION WIDTH 18.3 % (11.6-14.6)
[2017-05-06 05:19] LABS: CARBON DIOXIDE 24 mEq/L (21-32); CHLORIDE 93 mEq/L (98-107); TROPONIN I 0.04 ng/mL (0.00-0.04)
[2017-05-06] MEDS: DILTIAZEM HCL 90MG TABLET PO SCH ×2 (06:00)
[2017-05-06 07:42] LABS: NUCLEATED RED BLOOD CELLS 1 /100 WBC
[2017-05-06 07:44] LABS: PLATELET ESTIMATE DECREASED
[2017-05-06] MEDS: BLOOD SUGAR DIAGNOSTIC STRIP TEST SCH ×4 (07:50→21:27)
[2017-05-06 08:16] LABS: BG BASE EXCESS -2.6 mmol/L (-2.0-2.0); BG CARBOXYHEMOGLOBIN 0.7 % (0.5-1.5); BG FRACTION INSPIRED OXYGEN 40; BG HCO3 ACT 21.9 mmol/L (22.0-26.0); BG METHEMOGLOBIN 0.3 % (0.0-1.5); BG PCO2 37.1 mmHg (35.0-45.0); BG PH 7.389 (7.350-7.450); BG PO2 81.4 mmHg (75.0-100.0); BG SAMPLE SITE RIGHT RADIAL; BG TOTAL HEMOGLOBIN 11.6 g/dL (12.0-18.0); BG VENT MODE NASAL CANNULA
[2017-05-06] MEDS: INSULIN LISPRO 100 UNITS/ML SUBCUT SCH ×4 (08:20→21:00)
[2017-05-06] MEDS: FOLIC ACID 1MG TABLET PO SCH (09:02)
[2017-05-06] MEDS: FERROUS SULFATE 325MG TABLET PO SCH (09:02)
[2017-05-06] MEDS: SILVER SULFADIAZINE 1% CREAM 50GM TOP SCH (09:03)
[2017-05-06] MEDS: VANCOMYCIN 750 MG PREMIX 150 ML IV SCH (09:03)
[2017-05-06] MEDS: MORPHINE SULFATE 2 MG/ML CPJ (NOT FOR IM USE) IV PRN (09:22)
[2017-05-06] MEDS ORDERED: MORPHINE SULFATE 2 MG/ML CPJ (NOT FOR IM USE) IV SCH (10:00)
[2017-05-06] MEDS: LACTULOSE 20G/30ML UDC PO SCH ×2 (10:08→16:11)
[2017-05-06 12:25] LABS: HEMOGLOBIN 8.7 g/dL (12.0-16.0)
[2017-05-06] MEDS: MORPHINE SULFATE 4 MG/ML CPJ (NOT FOR IM USE) IV PRN ×2 (14:32→21:30)
[2017-05-06 22:21] LABS: HEMATOCRIT 30.5 % (36.0-48.0); HEMOGLOBIN 9.9 g/dL (12.0-16.0)
[2017-05-07] VITALS (80 sets, daily range): BP systolic 84–221; BP diastolic 46–144
[2017-05-07] MEDS: IPRATROPIUM/ALBUTEROL 0.5-3(2.5)MG/3ML NEB INH SCH ×6 (00:12→20:14)
[2017-05-07] MEDS: METRONIDAZOLE 500 MG PREMIX 100 ML IV SCH ×2 (02:05→14:20)
[2017-05-07] MEDS: MEROPENEM 1,000 MG in SODIUM CHLORIDE 0.9% 100 ML IV SCH ×2 (02:05→14:19)
[2017-05-07] MEDS: MORPHINE SULFATE 4 MG/ML CPJ (NOT FOR IM USE) IV PRN ×2 (04:43→22:04)
[2017-05-07] MEDS: PHENYLEPHRINE 40 MG in DEXT 5% WATER 246 ML IV PRN ×2 (04:45→13:20)
[2017-05-07 06:03] LABS: HEMATOCRIT. 25.8 % (36.0-48.0); HEMOGLOBIN. 8.4 g/dL (12.0-16.0); MEAN CORPUSCULAR HEMOGLOBIN 27.3 pg (28.0-32.0); MEAN CORPUSCULAR VOLUME 83.7 fL (81.0-99.0); MEAN PLATELET VOLUME 8.5 fl (7.4-10.4); PLATELET 55 x1000/uL (130-400); RED BLOOD CELL COUNT 3.08 mill/uL (4.2-5.4)
[2017-05-07 06:05] LABS: AMMONIA 31 uMol/L (<32)
[2017-05-07] MEDS: VANCOMYCIN HCL 1000 MG/20 ML ORAL PO SCH ×3 (06:42→18:17)
[2017-05-07 07:35] LABS: NUCLEATED RED BLOOD CELLS 3 /100 WBC
[2017-05-07 07:36] LABS: PLATELET ESTIMATE DECREASED
[2017-05-07] MEDS: VANCOMYCIN 750 MG PREMIX 150 ML IV SCH (08:03)
[2017-05-07] MEDS: LACTULOSE 20G/30ML UDC PO SCH ×2 (08:03→18:16)
[2017-05-07] MEDS: FOLIC ACID 1MG TABLET PO SCH (08:03)
[2017-05-07] MEDS: FERROUS SULFATE 325MG TABLET PO SCH (08:03)
[2017-05-07] MEDS: BLOOD SUGAR DIAGNOSTIC STRIP TEST SCH ×4 (08:03→20:37)
[2017-05-07] MEDS: INSULIN LISPRO 100 UNITS/ML SUBCUT SCH ×4 (08:30→20:37)
[2017-05-07 16:47] LABS: HEMATOCRIT 28.4 % (36.0-48.0); HEMOGLOBIN 9.4 g/dL (12.0-16.0)
[2017-05-07] MEDS: SILVER SULFADIAZINE 1% CREAM 50GM TOP SCH (18:04)
[2017-05-08] VITALS (96 sets, daily range): BP systolic 71–131; BP diastolic 50–80
[2017-05-08] MEDS: VANCOMYCIN HCL 1000 MG/20 ML ORAL PO SCH ×4 (00:08→17:19)
[2017-05-08] MEDS: IPRATROPIUM/ALBUTEROL 0.5-3(2.5)MG/3ML NEB INH SCH ×6 (00:32→19:36)
[2017-05-08] MEDS: MEROPENEM 1,000 MG in SODIUM CHLORIDE 0.9% 100 ML IV SCH ×2 (01:33→14:10)
[2017-05-08] MEDS: METRONIDAZOLE 500 MG PREMIX 100 ML IV SCH ×2 (02:17→15:07)
[2017-05-08 05:44] LABS: HEMATOCRIT. 28.4 % (36.0-48.0); HEMOGLOBIN. 9.4 g/dL (12.0-16.0); MEAN CORPUSCULAR HEMOGLOBIN 27.3 pg (28.0-32.0); MEAN CORPUSCULAR VOLUME 82.9 fL (81.0-99.0); MEAN PLATELET VOLUME 9.1 fl (7.4-10.4); RED BLOOD CELL COUNT 3.43 mill/uL (4.2-5.4); RED CELL DISTRIBUTION WIDTH 17.9 % (11.6-14.6)
[2017-05-08 05:55] LABS: PLATELET 48 x1000/uL (130-400)
[2017-05-08 06:46] LABS: AMMONIA 57 uMol/L (<32)
[2017-05-08 06:49] LABS: PLATELET ESTIMATE DECREASED
[2017-05-08] MEDS: BLOOD SUGAR DIAGNOSTIC STRIP TEST SCH ×4 (07:53→21:51)
[2017-05-08] MEDS: INSULIN LISPRO 100 UNITS/ML SUBCUT SCH ×4 (07:54→21:00)
[2017-05-08] MEDS: FERROUS SULFATE 325MG TABLET PO SCH (08:48)
[2017-05-08] MEDS: FOLIC ACID 1MG TABLET PO SCH (08:48)
[2017-05-08] MEDS: LACTULOSE 20G/30ML UDC PO SCH ×2 (08:48→17:19)
[2017-05-08] MEDS: SILVER SULFADIAZINE 1% CREAM 50GM TOP SCH (08:48)
[2017-05-08] MEDS: MORPHINE SULFATE 2 MG/ML CPJ (NOT FOR IM USE) IV PRN ×3 (10:52→22:23)
[2017-05-08] MEDS: DILTIAZEM HCL 5MG/ML 5ML VIAL IV PRN (14:52)
[2017-05-08] MEDS: PHENYLEPHRINE 40 MG in DEXT 5% WATER 246 ML IV PRN (16:41)
[2017-05-08 19:03] LABS: HEMATOCRIT 28.8 % (36.0-48.0); HEMOGLOBIN 9.4 g/dL (12.0-16.0)
[2017-05-09] VITALS (88 sets, daily range): BP systolic 40–198; BP diastolic 12–126
[2017-05-09] MEDS: IPRATROPIUM/ALBUTEROL 0.5-3(2.5)MG/3ML NEB INH SCH ×3 (00:11→07:58)
[2017-05-09] MEDS: DILTIAZEM HCL 5MG/ML 5ML VIAL IV PRN ×3 (00:39→09:51)
[2017-05-09] MEDS: VANCOMYCIN HCL 1000 MG/20 ML ORAL PO SCH ×5 (00:40→23:58)
[2017-05-09] MEDS: METRONIDAZOLE 500 MG PREMIX 100 ML IV SCH ×2 (03:07→14:38)
[2017-05-09] MEDS: MEROPENEM 1,000 MG in SODIUM CHLORIDE 0.9% 100 ML IV SCH (03:07)
[2017-05-09 05:30] LABS: HEMATOCRIT. 32.3 % (36.0-48.0); HEMOGLOBIN. 10.5 g/dL (12.0-16.0); MEAN CORPUSCULAR HEMOGLOBIN 27.5 pg (28.0-32.0); MEAN CORPUSCULAR VOLUME 84.5 fL (81.0-99.0); MEAN PLATELET VOLUME 9.4 fl (7.4-10.4); PLATELET 60 x1000/uL (130-400); RED BLOOD CELL COUNT 3.82 mill/uL (4.2-5.4); RED CELL DISTRIBUTION WIDTH 18.4 % (11.6-14.6)
[2017-05-09 05:38] LABS: AMMONIA < 10 uMol/L (<32)
[2017-05-09] MEDS: MORPHINE SULFATE 2 MG/ML CPJ (NOT FOR IM USE) IV PRN ×2 (05:50→16:12)
[2017-05-09] MEDS ORDERED: VANCOMYCIN 750 MG PREMIX 150 ML IV PRN (06:00)
[2017-05-09 07:39] LABS: NUCLEATED RED BLOOD CELLS 1 /100 WBC; PLATELET ESTIMATE DECREASED
[2017-05-09 07:47] LABS: CARBON DIOXIDE 21 mEq/L (21-32); CHLORIDE 101 mEq/L (98-107)
[2017-05-09] MEDS: BLOOD SUGAR DIAGNOSTIC STRIP TEST SCH ×4 (07:51→21:06)
[2017-05-09] MEDS: INSULIN LISPRO 100 UNITS/ML SUBCUT SCH ×4 (07:51→21:00)
[2017-05-09] MEDS: LACTULOSE 20G/30ML UDC PO SCH ×2 (08:51→17:23)
[2017-05-09] MEDS: FERROUS SULFATE 325MG TABLET PO SCH (08:51)
[2017-05-09] MEDS: FOLIC ACID 1MG TABLET PO SCH (08:51)
[2017-05-09] MEDS: SILVER SULFADIAZINE 1% CREAM 50GM TOP SCH (08:52)
[2017-05-09] MEDS: BUDESONIDE 0.5MG/2ML NEB HHN SCH ×2 (11:50→20:29)
[2017-05-09] MEDS: IPRATROPIUM/ALBUTEROL 0.5-3(2.5)MG/3ML NEB INH PRN ×3 (11:50→20:30)
[2017-05-09 12:47] LABS: BG BASE EXCESS -1.2 mmol/L (-2.0-2.0); BG CARBOXYHEMOGLOBIN 0.8 % (0.5-1.5); BG DEOXYHEMOGLOBIN 5.8 % (0.0-5.0); BG FRACTION INSPIRED OXYGEN 32; BG HCO3 ACT 22.8 mmol/L (22.0-26.0); BG METHEMOGLOBIN 0.4 % (0.0-1.5); BG OXYGEN SATURATION 94.1 % (92.0-98.5); BG PCO2 35.7 mmHg (35.0-45.0); BG PH 7.424 (7.350-7.450); BG PO2 69.9 mmHg (75.0-100.0); BG SAMPLE SITE RIGHT RADIAL; BG TOTAL HEMOGLOBIN 10.5 g/dL (12.0-18.0); BG VENT MODE NASAL CANNULA
[2017-05-09] MEDS: CEFEPIME 1,000 MG in DEXTROSE 5% WATER 50 ML IV SCH (13:36)
[2017-05-09] MEDS ORDERED: LIDOCAINE HCL/PF 1% 2ML VIAL ONE (13:58)
[2017-05-09] MEDS ORDERED: FUROSEMIDE 20MG/2ML VIAL IVP NR (14:45)
[2017-05-09 16:35] LABS: HEMATOCRIT 28.7 % (36.0-48.0); HEMOGLOBIN 9.3 g/dL (12.0-16.0)
[2017-05-09] MEDS ORDERED: FUROSEMIDE 40MG/4ML VIAL IVP NR (18:45)
[2017-05-10] VITALS (47 sets, daily range): BP systolic 84–149; BP diastolic 47–120
[2017-05-10] MEDS: IPRATROPIUM/ALBUTEROL 0.5-3(2.5)MG/3ML NEB INH PRN ×3 (01:37→20:30)
[2017-05-10] MEDS: METRONIDAZOLE 500 MG PREMIX 100 ML IV SCH ×2 (02:29→14:01)
[2017-05-10] MEDS: CEFEPIME 1,000 MG in DEXTROSE 5% WATER 50 ML IV SCH ×2 (02:29→14:00)
[2017-05-10] MEDS: MORPHINE SULFATE 2 MG/ML CPJ (NOT FOR IM USE) IV PRN ×5 (02:51→17:47)
[2017-05-10] MEDS: VANCOMYCIN HCL 1000 MG/20 ML ORAL PO SCH ×3 (05:17→17:34)
[2017-05-10 05:35] LABS: HEMATOCRIT. 28.3 % (36.0-48.0); HEMOGLOBIN. 9.1 g/dL (12.0-16.0); MEAN CORPUSCULAR HEMOGLOBIN 27.2 pg (28.0-32.0); MEAN CORPUSCULAR VOLUME 84.2 fL (81.0-99.0); MEAN PLATELET VOLUME 9.1 fl (7.4-10.4); PLATELET 73 x1000/uL (130-400); RED BLOOD CELL COUNT 3.36 mill/uL (4.2-5.4); RED CELL DISTRIBUTION WIDTH 18.3 % (11.6-14.6)
[2017-05-10] MEDS: BLOOD SUGAR DIAGNOSTIC STRIP TEST SCH ×4 (07:50→21:45)
[2017-05-10] MEDS ORDERED: FUROSEMIDE 40MG/4ML VIAL IVP NR ×2 (08:15→16:00)
[2017-05-10] MEDS: INSULIN LISPRO 100 UNITS/ML SUBCUT SCH ×4 (08:20→21:00)
[2017-05-10] MEDS: BUDESONIDE 0.5MG/2ML NEB HHN SCH ×2 (08:20→20:30)
[2017-05-10 09:06] LABS: NUCLEATED RED BLOOD CELLS 1 /100 WBC; PLATELET ESTIMATE DECREASED
[2017-05-10] MEDS: FOLIC ACID 1MG TABLET PO SCH (09:56)
[2017-05-10] MEDS: SILVER SULFADIAZINE 1% CREAM 50GM TOP SCH (09:56)
[2017-05-10] MEDS: FERROUS SULFATE 325MG TABLET PO SCH (09:56)
[2017-05-10] MEDS: LACTULOSE 20G/30ML UDC PO SCH ×2 (10:12→17:35)
[2017-05-10] MEDS ORDERED: ALBUMIN HUMAN 25GM/100ML (25%) IV NR (14:45)
[2017-05-10 17:18] LABS: HEMATOCRIT 28.5 % (36.0-48.0); HEMOGLOBIN 9.1 g/dL (12.0-16.0)
[2017-05-10] MEDS ORDERED: VANCOMYCIN 750 MG PREMIX 150 ML IV NR (18:00)
[2017-05-11] VITALS (37 sets, daily range): BP systolic 89–144; BP diastolic 49–101
[2017-05-11] MEDS: VANCOMYCIN HCL 1000 MG/20 ML ORAL PO SCH ×5 (01:09→23:55)
[2017-05-11] MEDS: CEFEPIME 1,000 MG in DEXTROSE 5% WATER 50 ML IV SCH ×2 (02:15→13:48)
[2017-05-11] MEDS: MORPHINE SULFATE 2 MG/ML CPJ (NOT FOR IM USE) IV PRN ×5 (02:22→15:30)
[2017-05-11] MEDS: METRONIDAZOLE 500 MG PREMIX 100 ML IV SCH ×2 (03:48→14:29)
[2017-05-11] MEDS: IPRATROPIUM/ALBUTEROL 0.5-3(2.5)MG/3ML NEB INH PRN ×2 (04:03→08:08)
[2017-05-11 05:56] LABS: HEMATOCRIT. 28.1 % (36.0-48.0); MEAN CORPUSCULAR HEMOGLOBIN 27.8 pg (28.0-32.0); MEAN CORPUSCULAR VOLUME 86.5 fL (81.0-99.0); PLATELET 102 x1000/uL (130-400); RED BLOOD CELL COUNT 3.24 mill/uL (4.2-5.4)
[2017-05-11 06:54] LABS: CARBON DIOXIDE 20 mEq/L (21-32); CHLORIDE 103 mEq/L (98-107); CREATINE KINASE 31 IU/L (26-192)
[2017-05-11] MEDS: BLOOD SUGAR DIAGNOSTIC STRIP TEST SCH ×4 (07:59→20:12)
[2017-05-11] MEDS: INSULIN LISPRO 100 UNITS/ML SUBCUT SCH ×4 (08:00→20:10)
[2017-05-11] MEDS: BUDESONIDE 0.5MG/2ML NEB HHN SCH ×2 (08:09→20:38)
[2017-05-11] MEDS: FOLIC ACID 1MG TABLET PO SCH (08:29)
[2017-05-11] MEDS: LACTULOSE 20G/30ML UDC PO SCH ×2 (08:29→17:23)
[2017-05-11] MEDS: FERROUS SULFATE 325MG TABLET PO SCH (08:29)
[2017-05-11] MEDS: SILVER SULFADIAZINE 1% CREAM 50GM TOP SCH (08:31)
[2017-05-11 11:27] LABS: PLATELET ESTIMATE SLIGHTLY DECREASED
[2017-05-11] MEDS: IPRATROPIUM BROMIDE (0.02%) 0.5MG/2.5ML NEB HHN SCH ×3 (13:05→20:38)
[2017-05-11] MEDS: METHYLPREDNISOLONE SOD SUCC 40 MG/ML VIAL IV SCH ×2 (13:14→22:09)
[2017-05-11] MEDS ORDERED: FUROSEMIDE 40MG/4ML VIAL IVP NR (13:30)
[2017-05-11] MEDS ORDERED: ALBUMIN HUMAN 25GM/100ML (25%) IV NR (13:30)
[2017-05-12] VITALS (22 sets, daily range): BP systolic 95–154; BP diastolic 46–91
[2017-05-12] MEDS: IPRATROPIUM BROMIDE (0.02%) 0.5MG/2.5ML NEB HHN SCH ×6 (00:38→20:25)
[2017-05-12] MEDS: CEFEPIME 1,000 MG in DEXTROSE 5% WATER 50 ML IV SCH ×2 (01:32→13:46)
[2017-05-12] MEDS: MORPHINE SULFATE 2 MG/ML CPJ (NOT FOR IM USE) IV PRN ×4 (01:42→21:35)
[2017-05-12] MEDS: METRONIDAZOLE 500 MG PREMIX 100 ML IV SCH ×2 (03:01→14:11)
[2017-05-12] MEDS: VANCOMYCIN HCL 1000 MG/20 ML ORAL PO SCH ×3 (05:56→17:38)
[2017-05-12] MEDS: METHYLPREDNISOLONE SOD SUCC 40 MG/ML VIAL IV SCH ×3 (05:57→21:04)
[2017-05-12 05:58] LABS: HEMATOCRIT. 25.3 % (36.0-48.0); HEMOGLOBIN. 8.1 g/dL (12.0-16.0); MEAN CORPUSCULAR HEMOGLOBIN 27.6 pg (28.0-32.0); MEAN CORPUSCULAR VOLUME 85.9 fL (81.0-99.0); MEAN PLATELET VOLUME 8.7 fl (7.4-10.4); PLATELET 77 x1000/uL (130-400); RED BLOOD CELL COUNT 2.95 mill/uL (4.2-5.4); RED CELL DISTRIBUTION WIDTH 19.2 % (11.6-14.6)
[2017-05-12 06:11] LABS: CARBON DIOXIDE 22 mEq/L (21-32); CHLORIDE 105 mEq/L (98-107)
[2017-05-12 07:26] LABS: PLATELET ESTIMATE DECREASED
[2017-05-12] MEDS: BLOOD SUGAR DIAGNOSTIC STRIP TEST SCH ×4 (07:52→21:05)
[2017-05-12] MEDS: INSULIN LISPRO 100 UNITS/ML SUBCUT SCH ×4 (07:52→21:37)
[2017-05-12] MEDS: BUDESONIDE 0.5MG/2ML NEB HHN SCH (08:09)
[2017-05-12] MEDS: LACTULOSE 20G/30ML UDC PO SCH ×2 (08:19→17:28)
[2017-05-12] MEDS: FOLIC ACID 1MG TABLET PO SCH (08:19)
[2017-05-12] MEDS: FERROUS SULFATE 325MG TABLET PO SCH (08:19)
[2017-05-12] MEDS: SILVER SULFADIAZINE 1% CREAM 50GM TOP SCH (08:20)
[2017-05-12] MEDS ORDERED: DIATR MEGLU/DIATRIZOATE SOLN 30ML PO SCH (12:15)
[2017-05-12] MEDS ORDERED: VANCOMYCIN 750 MG PREMIX 150 ML IV NR (18:00)
[2017-05-13] VITALS (12 sets, daily range): BP systolic 111–145; BP diastolic 55–98
[2017-05-13] MEDS: IPRATROPIUM BROMIDE (0.02%) 0.5MG/2.5ML NEB HHN SCH ×6 (00:45→20:53)
[2017-05-13] MEDS: CEFEPIME 1,000 MG in DEXTROSE 5% WATER 50 ML IV SCH ×2 (02:00→14:40)
[2017-05-13] MEDS: MORPHINE SULFATE 2 MG/ML CPJ (NOT FOR IM USE) IV PRN ×4 (03:38→21:36)
[2017-05-13] MEDS: METHYLPREDNISOLONE SOD SUCC 40 MG/ML VIAL IV SCH ×3 (05:05→21:36)
[2017-05-13] MEDS: BLOOD SUGAR DIAGNOSTIC STRIP TEST SCH ×4 (08:14→21:21)
[2017-05-13] MEDS: INSULIN LISPRO 100 UNITS/ML SUBCUT SCH ×4 (08:26→21:37)
[2017-05-13 09:08] LABS: HEMATOCRIT. 26.8 % (36.0-48.0); HEMOGLOBIN. 8.6 g/dL (12.0-16.0); MEAN CORPUSCULAR HEMOGLOBIN 27.4 pg (28.0-32.0); MEAN CORPUSCULAR VOLUME 85.1 fL (81.0-99.0); MEAN PLATELET VOLUME 8.7 fl (7.4-10.4); PLATELET 114 x1000/uL (130-400); RED BLOOD CELL COUNT 3.15 mill/uL (4.2-5.4); RED CELL DISTRIBUTION WIDTH 19.1 % (11.6-14.6)
[2017-05-13 09:24] LABS: CARBON DIOXIDE 24 mEq/L (21-32); CHLORIDE 102 mEq/L (98-107)
[2017-05-13] MEDS: LACTULOSE 20G/30ML UDC PO SCH ×2 (09:31→16:23)
[2017-05-13] MEDS: FERROUS SULFATE 325MG TABLET PO SCH (09:31)
[2017-05-13] MEDS: FOLIC ACID 1MG TABLET PO SCH (09:31)
[2017-05-13] MEDS: SILVER SULFADIAZINE 1% CREAM 50GM TOP SCH (09:32)
[2017-05-13 09:48] LABS: NUCLEATED RED BLOOD CELLS 1 /100 WBC; PLATELET ESTIMATE DECREASED
[2017-05-13] MEDS: METRONIDAZOLE 500 MG PREMIX 100 ML IV SCH (21:35)
[2017-05-14] VITALS (12 sets, daily range): BP systolic 105–159; BP diastolic 67–102
[2017-05-14] MEDS: IPRATROPIUM BROMIDE (0.02%) 0.5MG/2.5ML NEB HHN SCH ×6 (00:27→20:42)
[2017-05-14] MEDS: CEFEPIME 1,000 MG in DEXTROSE 5% WATER 50 ML IV SCH ×2 (01:47→14:07)
[2017-05-14] MEDS: MORPHINE SULFATE 2 MG/ML CPJ (NOT FOR IM USE) IV PRN ×4 (01:48→16:45)
[2017-05-14] MEDS: DIPHENHYDRAMINE 50MG/ML VIAL IV PRN (01:56)
[2017-05-14] MEDS: METHYLPREDNISOLONE SOD SUCC 40 MG/ML VIAL IV SCH ×3 (06:09→22:21)
[2017-05-14] MEDS: BLOOD SUGAR DIAGNOSTIC STRIP TEST SCH ×4 (07:30→21:00)
[2017-05-14] MEDS: INSULIN LISPRO 100 UNITS/ML SUBCUT SCH ×4 (07:56→22:20)
[2017-05-14] MEDS: FOLIC ACID 1MG TABLET PO SCH (07:58)
[2017-05-14] MEDS: METRONIDAZOLE 500 MG PREMIX 100 ML IV SCH ×2 (07:58→22:21)
[2017-05-14] MEDS: FERROUS SULFATE 325MG TABLET PO SCH (08:05)
[2017-05-14] MEDS: SILVER SULFADIAZINE 1% CREAM 50GM TOP SCH (08:06)
[2017-05-14] MEDS: LACTULOSE 20G/30ML UDC PO SCH ×2 (09:00→17:00)
[2017-05-14] MEDS: FUROSEMIDE 40MG TABLET PO SCH (13:44)
[2017-05-14] MEDS: AMLODIPINE 2.5MG TABLET PO SCH (22:21)
[2017-05-15] VITALS (12 sets, daily range): BP systolic 123–182; BP diastolic 76–112
[2017-05-15] MEDS: IPRATROPIUM BROMIDE (0.02%) 0.5MG/2.5ML NEB HHN SCH ×6 (00:30→21:08)
[2017-05-15] MEDS: CEFEPIME 1,000 MG in DEXTROSE 5% WATER 50 ML IV SCH ×2 (01:37→14:35)
[2017-05-15] MEDS: MORPHINE SULFATE 2 MG/ML CPJ (NOT FOR IM USE) IV PRN ×4 (05:28→21:57)
[2017-05-15] MEDS: METHYLPREDNISOLONE SOD SUCC 40 MG/ML VIAL IV SCH ×3 (05:29→21:55)
[2017-05-15 06:46] LABS: HEMATOCRIT. 26.7 % (36.0-48.0); HEMOGLOBIN. 8.8 g/dL (12.0-16.0); MEAN CORPUSCULAR VOLUME 85.2 fL (81.0-99.0); MEAN PLATELET VOLUME 8.1 fl (7.4-10.4); PLATELET 129 x1000/uL (130-400); RED BLOOD CELL COUNT 3.13 mill/uL (4.2-5.4); RED CELL DISTRIBUTION WIDTH 19.4 % (11.6-14.6)
[2017-05-15] MEDS: BLOOD SUGAR DIAGNOSTIC STRIP TEST SCH ×4 (07:28→21:54)
[2017-05-15 07:48] LABS: CHLORIDE 106 mEq/L (98-107)
[2017-05-15 07:53] LABS: CARBON DIOXIDE 22 mEq/L (21-32)
[2017-05-15 08:15] LABS: NUCLEATED RED BLOOD CELLS 1 /100 WBC
[2017-05-15 08:16] LABS: PLATELET ESTIMATE SLIGHTLY DECREASED
[2017-05-15] MEDS: FUROSEMIDE 40MG TABLET PO SCH (09:31)
[2017-05-15] MEDS: FOLIC ACID 1MG TABLET PO SCH (09:31)
[2017-05-15] MEDS: FERROUS SULFATE 325MG TABLET PO SCH (09:31)
[2017-05-15] MEDS: AMLODIPINE 2.5MG TABLET PO SCH (09:31)
[2017-05-15] MEDS: INSULIN LISPRO 100 UNITS/ML SUBCUT SCH ×4 (09:32→21:55)
[2017-05-15] MEDS: METRONIDAZOLE 500 MG PREMIX 100 ML IV SCH ×2 (09:32→21:54)
[2017-05-15] MEDS: SILVER SULFADIAZINE 1% CREAM 50GM TOP SCH (09:33)
[2017-05-15] MEDS: DILTIAZEM HCL 30MG TABLET PO SCH ×2 (12:33→17:32)
[2017-05-16] VITALS (12 sets, daily range): BP systolic 110–147; BP diastolic 69–96
[2017-05-16] MEDS: IPRATROPIUM BROMIDE (0.02%) 0.5MG/2.5ML NEB HHN SCH ×6 (00:46→20:41)
[2017-05-16] MEDS: DILTIAZEM HCL 30MG TABLET PO SCH ×5 (00:49→23:03)
[2017-05-16] MEDS: CEFEPIME 1,000 MG in DEXTROSE 5% WATER 50 ML IV SCH ×2 (03:14→16:10)
[2017-05-16] MEDS: METHYLPREDNISOLONE SOD SUCC 40 MG/ML VIAL IV SCH (05:40)
[2017-05-16 06:53] LABS: HEMATOCRIT. 26.8 % (36.0-48.0); HEMOGLOBIN. 8.6 g/dL (12.0-16.0); MEAN CORPUSCULAR HEMOGLOBIN 27.9 pg (28.0-32.0); MEAN CORPUSCULAR VOLUME 86.4 fL (81.0-99.0); MEAN PLATELET VOLUME 8.7 fl (7.4-10.4); PLATELET 163 x1000/uL (130-400); RED CELL DISTRIBUTION WIDTH 19.5 % (11.6-14.6)
[2017-05-16 07:43] LABS: CARBON DIOXIDE 24 mEq/L (21-32); CHLORIDE 103 mEq/L (98-107)
[2017-05-16] MEDS: BLOOD SUGAR DIAGNOSTIC STRIP TEST SCH ×4 (08:16→20:52)
[2017-05-16] MEDS: MORPHINE SULFATE 2 MG/ML CPJ (NOT FOR IM USE) IV PRN ×2 (08:21→13:41)
[2017-05-16] MEDS: INSULIN LISPRO 100 UNITS/ML SUBCUT SCH ×4 (08:22→20:56)
[2017-05-16] MEDS: FERROUS SULFATE 325MG TABLET PO SCH (09:40)
[2017-05-16] MEDS: METRONIDAZOLE 500 MG PREMIX 100 ML IV SCH ×2 (09:40→20:52)
[2017-05-16] MEDS: FUROSEMIDE 40MG TABLET PO SCH (09:40)
[2017-05-16] MEDS: FOLIC ACID 1MG TABLET PO SCH (09:40)
[2017-05-16] MEDS: SILVER SULFADIAZINE 1% CREAM 50GM TOP SCH (09:42)
[2017-05-16 10:25] LABS: NUCLEATED RED BLOOD CELLS 1 /100 WBC; PLATELET ESTIMATE NORMAL
[2017-05-16] MEDS: MORPHINE SULFATE 4 MG/ML CPJ (NOT FOR IM USE) IV PRN (21:26)
[2017-05-17] VITALS (16 sets, daily range): BP systolic 118–154; BP diastolic 31–103
[2017-05-17] MEDS: MORPHINE SULFATE 4 MG/ML CPJ (NOT FOR IM USE) IV PRN ×5 (01:42→21:00)
[2017-05-17] MEDS: CEFEPIME 1,000 MG in DEXTROSE 5% WATER 50 ML IV SCH ×2 (01:42→14:12)
[2017-05-17] MEDS: IPRATROPIUM BROMIDE (0.02%) 0.5MG/2.5ML NEB HHN SCH ×6 (02:06→21:42)
[2017-05-17] MEDS: DILTIAZEM HCL 30MG TABLET PO SCH ×3 (05:22→18:08)
[2017-05-17 07:20] LABS: INR 1.5; PROTHROMBIN TIME 15.5 sec
[2017-05-17 07:44] LABS: CARBON DIOXIDE 24 mEq/L (21-32); CHLORIDE 104 mEq/L (98-107)
[2017-05-17] MEDS: BLOOD SUGAR DIAGNOSTIC STRIP TEST SCH ×4 (08:12→20:49)
[2017-05-17] MEDS: FUROSEMIDE 40MG TABLET PO SCH (08:28)
[2017-05-17] MEDS: PROPRANOLOL HCL 10MG TABLET PO SCH ×2 (08:28→20:50)
[2017-05-17] MEDS: INSULIN LISPRO 100 UNITS/ML SUBCUT SCH ×4 (08:28→20:53)
[2017-05-17] MEDS: FOLIC ACID 1MG TABLET PO SCH (08:29)
[2017-05-17] MEDS: FERROUS SULFATE 325MG TABLET PO SCH (08:29)
[2017-05-17] MEDS: METRONIDAZOLE 500 MG PREMIX 100 ML IV SCH ×2 (08:29→20:49)
[2017-05-17] MEDS ORDERED: PREDNISONE 20MG TABLET PO SCH (09:00)
[2017-05-17] MEDS: SILVER SULFADIAZINE 1% CREAM 50GM TOP SCH (09:01)
[2017-05-17] MEDS ORDERED: LIDOCAINE HCL 1% 20ML VIAL (Pyxis) INJ ONE (14:21)
[2017-05-17] MEDS ORDERED: SODIUM BICARBONATE 4% (2.4MEQ) 5ML VIAL IV ONE (14:21)
[2017-05-17 23:18] LABS: CARCINO EMBRYONIC ANTIGEN 1.9 ng/ml; FERRITIN 220 ng/mL (10-291)
[2017-05-17 23:21] LABS: FOLIC ACID (FOLATE) SERUM > 20.00 ng/mL (>5.38); VITAMIN B12 SERUM > 2000 pg/mL (211-911)
[2017-05-18] VITALS (10 sets, daily range): BP systolic 93–131; BP diastolic 49–90
[2017-05-18] MEDS: IPRATROPIUM BROMIDE (0.02%) 0.5MG/2.5ML NEB HHN SCH ×6 (00:45→20:14)
[2017-05-18] MEDS: CEFEPIME 1,000 MG in DEXTROSE 5% WATER 50 ML IV SCH ×2 (02:08→14:51)
[2017-05-18 04:13] LABS: OVA & PARASITE EXAM Final report (.)
[2017-05-18] MEDS: DILTIAZEM HCL 30MG TABLET PO SCH ×4 (05:51→18:08)
[2017-05-18] MEDS: BLOOD SUGAR DIAGNOSTIC STRIP TEST SCH ×3 (07:58→17:47)
[2017-05-18] MEDS: FOLIC ACID 1MG TABLET PO SCH (08:39)
[2017-05-18] MEDS: FERROUS SULFATE 325MG TABLET PO SCH (08:39)
[2017-05-18] MEDS: METRONIDAZOLE 500 MG PREMIX 100 ML IV SCH (08:39)
[2017-05-18] MEDS: PROPRANOLOL HCL 10MG TABLET PO SCH (08:39)
[2017-05-18] MEDS: FUROSEMIDE 40MG TABLET PO SCH (08:39)
[2017-05-18] MEDS: SILVER SULFADIAZINE 1% CREAM 50GM TOP SCH (08:41)
[2017-05-18] MEDS: INSULIN LISPRO 100 UNITS/ML SUBCUT SCH ×3 (08:42→18:06)
[2017-05-18] MEDS ORDERED: PREDNISONE 20MG TABLET PO SCH (09:00)
[2017-05-18] MEDS: MORPHINE SULFATE 4 MG/ML CPJ (NOT FOR IM USE) IV PRN ×2 (09:55→15:09)
[2017-05-18] MEDS: ACETAMINOPHEN 325MG TABLET PO PRN (19:50)
[2017-05-19 10:07] LABS: A/G RATIO 0.9 (0.7-1.7); ALBUMIN 2.8 g/dL (2.9-4.4); ALPHA-1-GLOBULIN 0.2 g/dL (0.0-0.4); ALPHA-2-GLOBULIN 0.6 g/dL (0.4-1.0); BETA GLOBULIN 0.6 g/dL (0.7-1.3); GAMMA GLOBULINS 1.5 g/dL (0.4-1.8); M-SPIKE Not Observed g/dL (Not Observed); TOTAL PROTEIN SERUM 5.8 g/dL (6.0-8.5)
== END 2017-05-18 21:30 | DRG 720 ==
LOC: ER 05:55 → 5EST 07:58 → EDBEDREQ 08:01 → EDBEDREQSVC 09:16 → ENRESERV 10:09 → CVICU 05-04 19:49 → 5EST 05-12 16:00
PROVIDERS: ADMIT Internal Medicine; ATTEND Internal Medicine
PROC: 0W9B30Z Drainage of Left Pleural Cavity with Drainage Device, Percutaneous Approach (ICD-10-PCS; 2017-05-04)
PROC: 05H933Z Insertion of Infusion Device into Right Brachial Vein, Percutaneous Approach (ICD-10-PCS; 2017-05-04)
PROC: B54MZZA Ultrasonography of Right Upper Extremity Veins, Guidance (ICD-10-PCS; 2017-05-04)
PROC: 30233N1 Transfusion of Nonautologous Red Blood Cells into Peripheral Vein, Percutaneous Approach (ICD-10-PCS; principal; 2017-05-05)
PROC: 0W9G3ZZ Drainage of Peritoneal Cavity, Percutaneous Approach (ICD-10-PCS; 2017-05-11)
PROC: 0T9B70Z Drainage of Bladder with Drainage Device, Via Natural or Artificial Opening (ICD-10-PCS; 2017-05-12)
DX: A41.53 Sepsis due to Serratia (principal); J96.00 Acute respiratory failure, unspecified whether with hypoxia or hypercapnia; N17.0 Acute kidney failure with tubular necrosis; R65.21 Severe sepsis with septic shock; E43 Unspecified severe protein-calorie malnutrition; G92 Toxic encephalopathy; I85.00 Esophageal varices without bleeding; E87.2 Acidosis; K65.2 Spontaneous bacterial peritonitis; D68.4 Acquired coagulation factor deficiency; I13.0 Hypertensive heart and chronic kidney disease with heart failure and stage 1 through stage 4 chronic kidney disease, or unspecified chronic kidney disease; I50.22 Chronic systolic (congestive) heart failure; D69.59 Other secondary thrombocytopenia; L03.115 Cellulitis of right lower limb; E11.22 Type 2 diabetes mellitus with diabetic chronic kidney disease; E11.621 Type 2 diabetes mellitus with foot ulcer; I27.2 Other secondary pulmonary hypertension; J44.1 Chronic obstructive pulmonary disease with (acute) exacerbation; L03.116 Cellulitis of left lower limb; J98.11 Atelectasis; K21.9 Gastro-esophageal reflux disease without esophagitis; K43.9 Ventral hernia without obstruction or gangrene; K57.30 Diverticulosis of large intestine without perforation or abscess without bleeding; K70.31 Alcoholic cirrhosis of liver with ascites; L03.90 Cellulitis, unspecified; Z22.322 Carrier or suspected carrier of Methicillin resistant Staphylococcus aureus; S91.301A Unspecified open wound, right foot, initial encounter; N18.9 Chronic kidney disease, unspecified; A41.81 Sepsis due to Enterococcus; B18.2 Chronic viral hepatitis C; D50.9 Iron deficiency anemia, unspecified; E11.649 Type 2 diabetes mellitus with hypoglycemia without coma; E87.1 Hypo-osmolality and hyponatremia; E11.65 Type 2 diabetes mellitus with hyperglycemia; F10.20 Alcohol dependence, uncomplicated; I25.10 Atherosclerotic heart disease of native coronary artery without angina pectoris; I47.1 Supraventricular tachycardia; L97.529 Non-pressure chronic ulcer of other part of left foot with unspecified severity; L97.519 Non-pressure chronic ulcer of other part of right foot with unspecified severity; K72.90 Hepatic failure, unspecified without coma; K52.9 Noninfective gastroenteritis and colitis, unspecified; I89.0 Lymphedema, not elsewhere classified; K31.9 Disease of stomach and duodenum, unspecified; J96.20 Acute and chronic respiratory failure, unspecified whether with hypoxia or hypercapnia; K44.9 Diaphragmatic hernia without obstruction or gangrene; K76.6 Portal hypertension; Z72.0 Tobacco use; Z79.899 Other long term (current) drug therapy
CPT/HCPCS: 32555; 36415; 36569; 36600; 49083; 71010; 74176; 76705; 76937; 78582; 80048; 80053; 80061; 80076; 80202; 80305; 81003; 82140; 82270; 82375; 82378; 82550; 82553; 82607; 82728; 82746; 82805; 82962; 83540; 83550; 83605; 83690; 83735; 83880; 84155; 84165; 84443; 84484; 85014; 85018; 85025; 85044; 85379; 85384; 85610; 85730; 86850; 86900; 86920; 87015; 87040; 87045; 87070; 87077; 87086; 87177; 87186; 87205; 87209; 87427; 87449; 87493; 89055; 93005; 93306; 93923; 93970; 94640; 94664; 96365; 96375; 97162; 97166; 97530; 99285; A4216; A9558; C1725; C1893; J0692; J1200; J1815; J1940; J2185; J2270; J2370; J2405; J2543; J2920; J2930; J3370; J3475; J3490; J7030; J7040; J7042; J7050; J7060; J7512; J7611; J7620; J7626; P9016; P9047; Q9963; A4315